=== PATIENT | male | born 1960 | race Caucasian/White ===

== ENCOUNTER 2018-07-20 06:17 | Inpatient (IN) ==
[2018-07-20] MEDS ORDERED: CeFAZolin Syr 3,000MG/30 ML 3,000 MG/30 ML SYRINGE IVPB ONE (06:30)
[2018-07-20] MEDS ORDERED: Ringers Solution, Lactated 1,000 ML IVC SCH (06:30)
[2018-07-20] MEDS ORDERED: Albuterol 2.5 MG/3 ML NEBULIZER IH ONE (06:30)
[2018-07-20] MEDS ORDERED: LIDOCAINE 1% PF 2 ML AMPUL ONE (07:17)
--- NOTE | 2018-07-20 07:28 | History & Physical Report ---
Date of Encounter: 07/20/18 Time of Encounter: 07:28 24 Hour HP Update - Instructions Instructions: If the History and Physical is less than 30 days old and was completed prior to A.M. admission and or procedure and has NOT been updated on calendar day of procedure please complete this update prior to performing procedure. - Update Patient reports changes in Medical Condition: No Changes in examination, assessment, or condition: No Changes in Medication: No Preop tests/diagnostics Reviewed: Yes Surgery Remains Indicated: Yes Consent for Planned Operative Procedure(s) Verified: Yes - Pre-Operative Checklist Preoperative Checklist Indicated: Yes Prophylactic Antibiotic Ordered: Yes Home Medications Include Beta Sergo: No Is VTE Prophylaxis Indicated?: Yes
[2018-07-20] MEDS ORDERED: Lidocaine -MPF 2% 2 ML VIAL ONE ×2 (07:35→07:42)
[2018-07-20] MEDS ORDERED: *HR* Midazolam HCl 2 MG/2 ML VIAL ONE (07:35)
[2018-07-20] MEDS ORDERED: *HR* FentaNYL (PF) 100 MCG/2 ML VIAL ONE ×2 (07:35→09:31)
[2018-07-20] MEDS ORDERED: *HR* Rocuronium Bromide 50 MG/5 ML VIAL ONE ×2 (07:35→10:07)
[2018-07-20] MEDS ORDERED: Lidocaine -MPF 4% 5 ML AMPUL ONE (07:35)
[2018-07-20] MEDS ORDERED: *HR* Succinylcholine 200 MG/10 ML VIAL IVP ONE (07:35)
[2018-07-20] MEDS ORDERED: *HR* Propofol 200 MG/20 ML VIAL IVP ONE (07:36)
[2018-07-20] MEDS ORDERED: *HR* OxyCODONE Immed Rel 5 MG TABLET PO PRN (07:38)
[2018-07-20] MEDS ORDERED: *HR* Promethazine 25 MG/ML VIAL IVP PRN (07:38)
[2018-07-20] MEDS ORDERED: *HR* Labetalol 20 MG/4 ML SYRINGE IVP PRN (07:38)
[2018-07-20] MEDS ORDERED: *HR* HYDROmorphone (PF) 1 MG/ML SYRINGE IVP PRN (07:38)
[2018-07-20] MEDS ORDERED: *HR* Meperidine 25 MG/ML SYRINGE IVP PRN (07:38)
[2018-07-20] MEDS ORDERED: Ondansetron 4 MG/2 ML VIAL IVP ONE (07:38)
--- NOTE | 2018-07-20 07:41 | Anesthesia Evaluation PreOp ---
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: Other (chronic back pain, dizziness) Other Medical History: Hepatic (fatty liver), Renal (left renal mass (most likely cancer)), Diabetes Type II (non insulin dependent), GERD, Other (BMI 51) Anesthesia History: No Prior Anesthetic Complications, Past Anesthesia (cyst removed from left elbow, cyst removed from left side of nose, plantar warts removed from feet, lower extremity surgery for PVD) Alcohol Use: none Drug use: none Medications and Allergies Aclidinium [place] [Tudorza Pressair] 1 puff IH BID 07/20/18 [History] Albuterol Sulfate [Ventolin Hfa] 2 puff IH Q4-6H PRN 07/20/18 [History] Aspirin [Lo-Dose Aspirin EC] 81 mg PO DAILY 07/20/18 [History] Atorvastatin [Lipitor] 40 mg PO HS 07/20/18 [History] Fluticasone Propionate Nasal [Flonase] 1 spr NS DAILY PRN 07/20/18 [History] Ipratropium/Albuterol Neb [Duoneb] 3 ml IH Q6HR 07/20/18 [History] Lansoprazole [Prevacid] 15 mg PO DAILY 07/20/18 [History] Loratadine [Claritin] 10 mg PO DAILY 07/20/18 [History] Metformin HCl [Metformin HCl ER] 500 mg PO BID 07/20/18 [History] rOPINIRole [Requip] 2 mg PO HS 07/20/18 [History] Allergy/AdvReac Type Severity Reaction Status Date / Time No Known Allergies Allergy Verified 07/20/18 07:24 - Meds/Allergy Pre-op Review Medications Reviewed: Yes Allergies Reviewed: Yes Beta Blockers on Current Med List: No Anesthesia Results - Labs Laboratory Tests 07/14/18 07/14/18 07/14/18 12:40 12:40 12:40 WBC 8.1 Hgb 17.0 H Hct 51.8 H Plt Count 209 Potassium 4.4 Creatinine 1.08 Est GFR ( Amer) > 60 Est GFR (Non-Af Amer) > 60 Est Mean Plasma Glucose 151 Hemoglobin A1c 6.9 H - Imaging EKG: report reviewed, image reviewed (: SR; rightward axis; septal T wave changes are nonspecific) Additional studies: TTE: LVEF 55-60% no signficiant valvular disease borderline RV dilation Lexiscan stress test: normal Anesthesia Exam Last Vital Signs Temp 97.8 F 07/20/18 06:44 Pulse 78 07/20/18 06:44 Resp 18 07/20/18 06:44 BP 126/69 07/20/18 06:44 Pulse Ox 91 07/20/18 06:44 Weight: 164 kg NPO (# of Hours): > 8 hrs - HEENT Pupil (Motor): Pupils equal, EOMI Mallampati: III Teeth: Edentulous Oral Opening: Greater than 3 - CRANKSHAFT GRINDER LOC: Oriented - Cardiac Rhythm: Regular Murmur: None - Pulmonary Breath Sounds: bilateral Clear Respiratory Effort: Symmetrical Anesthesia Assess/Plan ASA Score: 4 Anesthetic Plan: General Monitoring Plan: Standard Monitors Recovery Plan: PACU
[2018-07-20] MEDS ORDERED: Ondansetron 4 MG/2 ML VIAL ONE (07:42)
[2018-07-20] MEDS ORDERED: Dexamethasone 4 MG/ML VIAL ONE (07:42)
[2018-07-20] MEDS ORDERED: SUGAMMADEX SODIUM 500 MG/5 ML VIAL IV ONE (07:45)
[2018-07-20] MEDS ORDERED: *HR* PHENYLEPHRINE 1,000 MCG/10 ML SYRINGE IVP ONE (11:58)
[2018-07-20 12:51] LABS: ABG Base Excess -1 mEq/L (-2 to 3); ABG Chloride 104 mEq/L (98-107); ABG Glucose 175 mg/dL (60-95); ABG HCO3 27 mEq/L (21-27); ABG Ionized Calcium 1.18 mmol/L (1.15-1.35); ABG Oxygen Saturation 99 % (95-98); ABG PCO2 59 mmHg (35-45); ABG PH 7.27 pH Units (7.32-7.45); ABG PO2 141 mmHg (85-104); ABG TCO2 29 mEq/L (20-26)
[2018-07-20] MEDS ORDERED: *HR* Morphine 10 MG/ML VIAL ONE (15:31)
--- NOTE | 2018-07-20 16:30 | Operative Note ---
Date of procedure: 07/20/18 Pre-op diagnosis: Left renal mass Post-op diagnosis: same Procedure: Left robotic nephrectomy Implants: Mendes catheter Complications: none Anesthesia: GETA Surgeon: Vinicio Way Was there an embalmer assistant present: Yes Kick Press Operator: Bonita Ventura Estimated blood loss (cc): 2,000 Specimen: left renal mass Condition: stable Disposition: PACU Procedure in Detail: Insert robotic nephrectomy Indications: Danny is a 57-year-old woman who presents with left flank pain. His CT showed a 7cm left renal mass. He elected to undergo a left robotic nephrectomy. He was informed of the risks of the procedure which include but are not limited to bleeding, infection, injury to other structures, need for further procedures, urine leak, bowel injury, need for open conversion, and the risk of anesthesia. He is willing to proceed. Procedure After informed consent was obtained the patient was brought back to the operating room and placed in the supine position. A timeout was performed. Gen. anesthesia was then administered and an endotracheal tube was placed. Appropriate IV access was obtained. A Mendes catheter was placed. He was then placed in the flank position. His left side was up. All pressure points were padded. He was well secured to the table. He was then prepped and draped in the usual sterile fashion. We then marked out our incision along the lateral aspect of the rectus abdominis muscle. 4 robotic ports were placed in line. There was one robotic port which was 12 mm to accommodate the stapler. The most inferior port was a 15 mm port in which I je aleah the robotic port through. Access was obtained using a Veress needle. 2 clicks were heard. It past the water drop test. Insufflation was then initiated. Pressures were low consecutively. The abdomen was insufflated. Once the pressure was up to 15, we inserted the 8 mm robotic port. The camera was placed through the port. No evidence of bowel injury was noted. Remaining robotic ports were inserted. A 12 mm port was placed for the embalmer assistant superior to the umbilicus using the air seal. The robot was docked. The bowel was reflected off the kidney along the white line of Toldt. The kidney was identified. Dissection proceeded inferiorly. Once the bowel was reflected medially I identified the gonadal vein. This was pressed down and the ureter was identified behind it. The ureter was elevated with the kidney and the kidney was lifted towards the anterior abdominal wall. Dissection proceeded in a superior fashion to the hilum. There was an inferior renal artery and vein noted. These were controlled using hemo-lock clips. 2 were applied to the patient's side and one was applied to the specimen. The vessels were cut between. Dissection proceeded superiorly to the hilum. The renal vein was identified. The renal artery was identified superior to it. Hemo-lock clips were applied 3 to the artery. 2 were left with the patient's side and one was left in the specimen side. The artery was divided and hemostasis was well controlled. The robotic stapler was introduced. The renal vein was stapled across. The stapler did not go across the entire renal vein. There was then hemorrhage from the renal vein. I applied hemo-lock clips to the renal vein and this slowed down the bleeding. Unfortunately, the size of the kidney made visualization of the hilum to the lateral aspect difficult. I placed a Surgicel in the area of the hilum. The bleeding seemed to slow down. I then turned my attention to mobilize the kidney. Began dissecting superior to the kidney. The fat was dissected with a left cautery. Attention was then turned to the inferior aspect. The ureter was clipped with the hemo-lock clips. It was cut in between clips. The kidney was reflected anteriorly. I continued the dissection up the posterior aspect. Another lower pole vascular branch was encountered. This was small. I used bipolar cautery which controlled the bleeding and the vessels were taken. Hemostasis was good. A large parasitic vein was seen coming into the anterior aspect of the kidney. A stapler load was placed across that. Eventually I was able to mobilize the kidney further. I then turned my attention back to the hilum. I had adequate posterior dissection at that point. The remaining renal vein was identified. A second stapler load was used to control the remaining renal vein. Hemostasis was good. We then turned our dissection superior and laterally and freed the kidney from the splenorenal attachments. The kidney was dissected free superiorly. The kidney was then completely freed. Hemostasis was good. The robot was undocked. I placed a 15 mm extraction bag into the lower port. I was not able to get the kidney in there. A lot of time was spent trying to get the kidney in a bag. Eventually I extended the port site and placed a GelPort. The bag was placed with a 12 mm port after removal of it. I was able to use my hand to get the kidney into the bag. This was then brought to the wound created for the hand port. The kidney was brought out. The Endo Close was then placed to close the air seal port and the 12 mm port. I then visualized the hilum and felt that hemostasis was adequate. No drain was left in place. The extraction site was then closed. The peritoneum was closed in a running fashion using 0 Vicryl suture. The fascia was closed using a 1 Vicryl suture in an interrupted [id number] fashion. The wounds were irrigated. 3-0 Vicryl was used to close the Yandy's fascia on the extraction site. Local anesthetic was infiltrated in the skin. The wounds were closed in a subcuticular fashion using 4-0 Monocryl suture. Local anesthetic was infiltrated in the wounds. Dermabond was applied to the wounds. The patient was then awakened from general anesthesia and brought to recovery room in good condition. All sponge, needle, and instrument counts were correct.
[2018-07-20 17:00] LABS: Hematocrit 38.4 % (37.5-50.1)
[2018-07-20 17:01] LABS: Hemoglobin 12.5 g/dL (12.9-16.9)
--- NOTE | 2018-07-20 17:41 | Anesthesia Evaluation Post Op ---
Date of Encounter: 07/20/18 Time of Encounter: 17:37 - Vital Signs Vital Signs: Last Vital Signs Temp 100.3 F H 07/20/18 17:30 Pulse 98 07/20/18 17:30 Resp 16 07/20/18 17:30 BP 123/69 07/20/18 17:20 Pulse Ox 93 07/20/18 17:30 - Lungs Lungs: Clear Ascult./Percussion - Airway Airway: Non-obstructed - Cardiovascular Regular Rate - Mental Status Mental Status: Alert & Oriented, Answers Appropriately - Pain Pain Scale: 3 - Nausea Vomiting Nausea Vomiting: Not Present - Hydration Hydration: NPO, Mendes catheter - Discharge PostOp Status: Transfer Patient to floor
[2018-07-20] MEDS ORDERED: D5% in Water 1,000 ML IVC PRN (17:55)
[2018-07-20] MEDS ORDERED: *HR* Dextrose 50 % in Water (Syg) 50 ML SYRINGE IVP PRN (17:55)
[2018-07-20] MEDS ORDERED: Naloxone 0.4 MG/ML INJ IVP PRN (17:55)
[2018-07-20] MEDS ORDERED: OXYCODONE Oral CONC 10 MG/0.5 ML ORAL.SYG SL PRN (17:55)
[2018-07-20] MEDS ORDERED: Dextrose Gel 15 GM/37.5 ML TUBE PO PRN ×2 (17:55)
[2018-07-20] MEDS ORDERED: Fluticasone Propionate Nasal 50 MCG/SPRAY BOTTLE NS PRN (17:55)
[2018-07-20] MEDS ORDERED: Ipratropium/Albuterol Neb 3 ML IH SCH (18:00)
[2018-07-20] MEDS: 0.9 % Sodium Chloride 1,000 ML IVC SCH (18:34)
[2018-07-20 21:04] LABS: Hematocrit 36.1 % (37.5-50.1); Hemoglobin 11.8 g/dL (12.9-16.9)
[2018-07-20] MEDS: rOPINIRole 1 MG TABLET PO SCH (21:33)
[2018-07-20] MEDS: *HR* OxyCODONE Immed Rel 5 MG TABLET PO PRN (21:33)
[2018-07-20] MEDS: Ipratropium/Albuterol Neb 3 ML IH SCH (22:28)
[2018-07-21] MEDS: CeFAZolin Syr 3,000MG/30 ML 3,000 MG/30 ML SYRINGE IVPB SCH ×2 (00:42→08:49)
[2018-07-21] MEDS: 0.9 % Sodium Chloride 1,000 ML IVC SCH ×3 (00:44→18:58)
[2018-07-21] MEDS: Ipratropium/Albuterol Neb 3 ML IH SCH ×4 (03:59→21:37)
[2018-07-21 05:44] LABS: Basophils % 0.1 %; Hematocrit 35.3 % (37.5-50.1); Immature Granulocytes % 0.2 % (0-4); Lymphocytes # 1.6 K/mcL (0.6-4.6); Lymphocytes % 12.4 %; Mean Corpuscular HGB Conc 31.2 g/dL (31.6-35.5); Mean Corpuscular Hemoglobin 29.4 pg (28.0-33.3); Mean Corpuscular Volume 94.4 fL (83.0-100.0); Mean Platelet Volume 10.6 fL (9.4-12.4); Monocytes % 7.9 %; Neutrophils # 10.2 K/mcL (1.6-8.9); Platelet Count 172 K/mcL (140-400); Red Blood Count 3.74 M/mcL (4.19-5.50); Red Cell Distribution Width 13.9 % (11.5-14.5); Segmented Neutrophils % 79.4 %
[2018-07-21 05:58] LABS: INR 1.1; Prothrombin Time 12.3 Seconds (9.4-12.1)
[2018-07-21] MEDS: Loratadine 10 MG TABLET PO SCH (08:48)
--- NOTE | 2018-07-21 09:26 | Urology Progress Note ---
Addendum entered and electronically signed by Vinicio Way MD 07/21/18 11:47: The patient was seen and examined with the physician's night assistant. I agree with the assessment and plan. We will monitor his H&H. It did drift down overnight. Await afternoon labs. I will repeat morning labs tomorrow. I will decrease IV fluids as her may be a dilutional component to this. We will request PT/OT for ambulation and assistance with his upper extremities. Continue clear liquids and await return of bowel function. I will continue his indwelling catheter to monitor his urine output. Original Note: Date of Encounter: 07/21/18 Time of Encounter: 08:10 - Assessment and Plan (1) Renal mass, left Current Visit: Yes Status: Acute Assessment and plan: Patient is a 57-year-old male who presents with a history of a large left renal mass. Patient is one day postoperative from a left robotic-assisted nephrectomy. Patient is feeling well postoperatively with no new concerns. We will continue with a clear liquid diet for the remainder of the day and continue Mendes catheter to strictly monitor I's and O's. Patient had adequate urine output overnight, so fluid rate will be decreased to 100 cc per hour. I encouraged ambulation up in the chair and consulted PT and OT. We will repeat an H&H at 1400 and then repeat both CBC and BMP tomorrow morning. Progress Note Narrative: POD#1. Patient seen and examined sitting upright in bed in no apparent distress. Patient states pain is well-controlled. Patient is tolerating clear liquids without nausea or vomiting. Patient reports some abdominal fullness and pressure, likely related to surgical insufflation. Indwelling catheter is draining clear urine into bedside bag. Objective Initial Vital Signs Temp Pulse Resp BP Pulse Ox 97.8 F 78 18 126/69 91 07/20/18 06:44 07/20/18 06:44 07/20/18 06:44 07/20/18 06:44 07/20/18 06:44 - General physical appearance Present: well developed, no distress, no pain - Respiratory Present: normal expansion, normal respiratory effort - Abdomen Present: soft, wound (Primary incisions are clean, dry, intact.) - Genitourinary Urine Appearance: Present: Clear - Integumentary Present: no rash, no abnormal pigmentation - Musculoskeletal Present: normal posture - Psychiatric Present: oriented to time, oriented to person, oriented to place, speech is normal, memory intact - Labs 07/21/18 05:28 Consult Discharge Plan - Plan Referrals: NONE,PCP [Primary Care Provider] -
[2018-07-21] MEDS: Acetaminophen 325 MG TABLET PO PRN ×2 (11:17→20:07)
[2018-07-21 14:25] LABS: Hematocrit 31.2 % (37.5-50.1); Hemoglobin 10.1 g/dL (12.9-16.9)
[2018-07-21] MEDS: *HR* OxyCODONE Immed Rel 5 MG TABLET PO PRN (18:13)
[2018-07-21] MEDS: rOPINIRole 1 MG TABLET PO SCH (20:07)
[2018-07-22] MEDS: *HR* OxyCODONE Immed Rel 5 MG TABLET PO PRN ×4 (01:40→20:04)
[2018-07-22] MEDS: Ipratropium/Albuterol Neb 3 ML IH SCH ×4 (03:51→22:02)
[2018-07-22] MEDS: 0.9 % Sodium Chloride 1,000 ML IVC SCH ×2 (05:18→15:37)
[2018-07-22 06:21] LABS: Basophils % 0.2 %; Eosinophils % 0.1 %; Hematocrit 27.2 % (37.5-50.1); Immature Granulocytes % 0.9 % (0-4); Lymphocytes # 1.6 K/mcL (0.6-4.6); Lymphocytes % 14.2 %; Mean Corpuscular HGB Conc 33.1 g/dL (31.6-35.5); Mean Corpuscular Hemoglobin 30.6 pg (28.0-33.3); Mean Corpuscular Volume 92.5 fL (83.0-100.0); Mean Platelet Volume 10.4 fL (9.4-12.4); Monocytes % 8.9 %; Neutrophils # 8.5 K/mcL (1.6-8.9); Platelet Count 128 K/mcL (140-400); Red Blood Count 2.94 M/mcL (4.19-5.50); Red Cell Distribution Width 13.8 % (11.5-14.5); Segmented Neutrophils % 75.7 %
[2018-07-22 06:44] LABS: Calcium 7.2 mg/dL (8.6-10.3); Potassium 4.4 mEq/L (3.5-5.1)
[2018-07-22] MEDS: Loratadine 10 MG TABLET PO SCH (08:13)
--- NOTE | 2018-07-22 08:59 | Urology Progress Note ---
<Bonita Ventura N - Last Filed: 07/22/18 09:00> Date of Encounter: 07/22/18 Time of Encounter: 08:53 - Assessment and Plan (1) Renal mass, left Current Visit: Yes Status: Acute Assessment and plan: Patient is a 57-year-old male who is 2 days status post left robotic-assisted nephrectomy. Reviewed labs and discussed H&H with Dr. Way. We will repeat H&H at 1400 [address] with a [address] scan of the abdomen and pelvis without contrast to evaluate for any active bleeding. We will continue to hold Lovenox due to the concern for bleeding. Vital signs are stable with slight fever to 100.0. WBC trending down. Clinically, the patient appears hemodynamically stable and in no apparent distress. We will reevaluate Mr. Lr this afternoon. Progress Note Narrative: POD #2. Patient seen and examined sitting upright in bed eating breakfast in no apparent distress. Patient is tolerating clear liquid diet without difficulty. Patient denies nausea or vomiting. Patient is requesting diet advancement. Mendes catheter is indwelling and draining clear urine into bedside bag. Patient states pain is well-controlled. Objective Initial Vital Signs Temp Pulse Resp BP Pulse Ox 97.8 F 78 18 126/69 91 07/20/18 06:44 07/20/18 06:44 07/20/18 06:44 07/20/18 06:44 07/20/18 06:44 - General physical appearance Present: well developed, no distress, no pain - Respiratory Present: normal expansion, normal respiratory effort - Abdomen Present: soft, non tender, wound (Primary incisions clean, dry, intact. Ecchymosis surrounding left lower incision.) - Genitourinary Urine Appearance: Present: Clear - Integumentary Present: no rash, no abnormal pigmentation - Musculoskeletal Present: normal posture - Psychiatric Present: oriented to time, oriented to person, oriented to place, speech is normal, memory intact - Labs 07/22/18 05:55 07/22/18 05:55 Diabetes panel 07/22/18 Range/Units 05:55 Sodium 135 L (136-145) mEq/L Potassium 4.4 (3.5-5.1) mEq/L Chloride 104 (98-107) mEq/L Carbon Dioxide 27 (23-29) mEq/L BUN 19 (6-20) mg/dL Creatinine 1.54 H (0.70-1.30) mg/dL Glucose 111 H (70-105) mg/dL Calcium 7.2 L (8.6-10.3) mg/dL Calcium panel 07/22/18 Range/Units 05:55 Calcium 7.2 L (8.6-10.3) mg/dL Pituitary panel 07/22/18 Range/Units 05:55 Sodium 135 L (136-145) mEq/L Potassium 4.4 (3.5-5.1) mEq/L Chloride 104 (98-107) mEq/L Carbon Dioxide 27 (23-29) mEq/L BUN 19 (6-20) mg/dL Creatinine 1.54 H (0.70-1.30) mg/dL Glucose 111 H (70-105) mg/dL Calcium 7.2 L (8.6-10.3) mg/dL Adrenal panel 07/22/18 Range/Units 05:55 Sodium 135 L (136-145) mEq/L Potassium 4.4 (3.5-5.1) mEq/L Chloride 104 (98-107) mEq/L Carbon Dioxide 27 (23-29) mEq/L BUN 19 (6-20) mg/dL Creatinine 1.54 H (0.70-1.30) mg/dL Glucose 111 H (70-105) mg/dL Calcium 7.2 L (8.6-10.3) mg/dL Consult Discharge Plan - Plan Referrals: NONE,PCP [Primary Care Provider] - <Vinicio Way - Last Filed: 07/22/18 13:02> Date of Encounter: 07/22/18 - Assessment and Plan (1) Anemia following surgery Current Visit: Yes Status: Acute Assessment and plan: POD #2 s/p left nephrectomy. H&H has dropped. Will check CT abdomen and pelvis. Continue with serial H&H. Will consider transfusion if hemoglobin drops below 8 or he becomes symptomatic. Ambulate 3x/day Continue clears Continue inpatient stay. Will hold off on subcutaneous heparin given concern for postoperative hematoma. Objective Initial Vital Signs Temp Pulse Resp BP Pulse Ox 97.8 F 78 18 126/69 91 07/20/18 06:44 07/20/18 06:44 07/20/18 06:44 07/20/18 06:44 07/20/18 06:44 - Labs 07/22/18 05:55 07/22/18 05:55 Diabetes panel 07/22/18 Range/Units 05:55 Sodium 135 L (136-145) mEq/L Potassium 4.4 (3.5-5.1) mEq/L Chloride 104 (98-107) mEq/L Carbon Dioxide 27 (23-29) mEq/L BUN 19 (6-20) mg/dL Creatinine 1.54 H (0.70-1.30) mg/dL Glucose 111 H (70-105) mg/dL Calcium 7.2 L (8.6-10.3) mg/dL Calcium panel 07/22/18 Range/Units 05:55 Calcium 7.2 L (8.6-10.3) mg/dL Pituitary panel 07/22/18 Range/Units 05:55 Sodium 135 L (136-145) mEq/L Potassium 4.4 (3.5-5.1) mEq/L Chloride 104 (98-107) mEq/L Carbon Dioxide 27 (23-29) mEq/L BUN 19 (6-20) mg/dL Creatinine 1.54 H (0.70-1.30) mg/dL Glucose 111 H (70-105) mg/dL Calcium 7.2 L (8.6-10.3) mg/dL Adrenal panel 07/22/18 Range/Units 05:55 Sodium 135 L (136-145) mEq/L Potassium 4.4 (3.5-5.1) mEq/L Chloride 104 (98-107) mEq/L Carbon Dioxide 27 (23-29) mEq/L BUN 19 (6-20) mg/dL Creatinine 1.54 H (0.70-1.30) mg/dL Glucose 111 H (70-105) mg/dL Calcium 7.2 L (8.6-10.3) mg/dL
[2018-07-22 14:33] LABS: Hematocrit 29.7 % (37.5-50.1); Hemoglobin 9.6 g/dL (12.9-16.9)
[2018-07-22] MEDS: rOPINIRole 1 MG TABLET PO SCH (20:50)
[2018-07-23] MEDS: Ipratropium/Albuterol Neb 3 ML IH SCH ×4 (04:04→22:07)
[2018-07-23 05:01] LABS: Basophils % 0.2 %; Eosinophils # 0.1 K/mcL (0.0-0.6); Eosinophils % 0.5 %; Hematocrit 27.2 % (37.5-50.1); Hemoglobin 8.7 g/dL (12.9-16.9); Immature Granulocytes % 0.8 % (0-4); Lymphocytes # 1.2 K/mcL (0.6-4.6); Lymphocytes % 11.4 %; Mean Corpuscular Hemoglobin 29.8 pg (28.0-33.3); Mean Corpuscular Volume 93.2 fL (83.0-100.0); Mean Platelet Volume 10.2 fL (9.4-12.4); Monocytes # 0.9 K/mcL (0.0-1.3); Monocytes % 8.4 %; Neutrophils # 8.1 K/mcL (1.6-8.9); Platelet Count 142 K/mcL (140-400); Red Blood Count 2.92 M/mcL (4.19-5.50); Red Cell Distribution Width 13.3 % (11.5-14.5); Segmented Neutrophils % 78.7 %
[2018-07-23 05:21] LABS: BUN/Creatinine Ratio 11 (6-26); Blood Urea Nitrogen 15 mg/dL (6-20); Calcium 7.7 mg/dL (8.6-10.3); Carbon Dioxide 28 mEq/L (23-29); Chloride 103 mEq/L (98-107); Glucose 115 mg/dL (70-105); Magnesium 1.9 mg/dL (1.6-2.6); Osmolality,Calculated 282 (280-300); Potassium 4.5 mEq/L (3.5-5.1); Sodium 135 mEq/L (136-145); eGFR For Non-African Americans 52 (> 60)
[2018-07-23] MEDS: *HR* OxyCODONE Immed Rel 5 MG TABLET PO PRN ×2 (06:22→17:07)
--- NOTE | 2018-07-23 07:36 | Urology Progress Note ---
Date of Encounter: 07/23/18 Time of Encounter: 07:33 - Assessment and Plan (1) Renal mass, left Current Visit: Yes Status: Acute Assessment and plan: Postoperative day #3 status post left robotic nephrectomy. 1. Ambulate 3 times per day. 2. Regular diet. 3. Will resume his diabetic medication. 4. Will arrange for rehabilitation stay upon discharge. 5. Will hold on subcutaneous heparin given concern for postoperative bleeding. Continue with ambulation and sequential compressive devices. 6. IV fluids have been hep-locked. Mendes catheter was removed. (2) Anemia following surgery Current Visit: Yes Status: Acute Assessment and plan: We will continue to monitor. No transfusion necessary at this time. He is hemodynamically stable. Progress Note Narrative: 57-year-old man postoperative day #3 status post left robotic nephrectomy. He had a CT scan yesterday which showed a postoperative hematoma. Blood counts are stable yesterday afternoon. He says he feels well. He is passing gas. He is tolerating general diet. His Mendes catheter was removed today. Objective Initial Vital Signs Temp Pulse Resp BP Pulse Ox 97.8 F 78 18 126/69 91 07/20/18 06:44 07/20/18 06:44 07/20/18 06:44 07/20/18 06:44 07/20/18 06:44 - General physical appearance Present: well developed, well nourished, no distress - Respiratory Present: normal respiratory effort - Abdomen Present: soft (Appropriately tender, mildly distended, incisions are clean, dry, and intact. Mild ecchymosis to the extraction wound.) - Labs 07/23/18 04:45 07/23/18 04:45 Diabetes panel 07/23/18 Range/Units 04:45 Sodium 135 L (136-145) mEq/L Potassium 4.5 (3.5-5.1) mEq/L Chloride 103 (98-107) mEq/L Carbon Dioxide 28 (23-29) mEq/L BUN 15 (6-20) mg/dL Creatinine 1.41 H (0.70-1.30) mg/dL Glucose 115 H (70-105) mg/dL Calcium 7.7 L (8.6-10.3) mg/dL Calcium panel 07/23/18 Range/Units 04:45 Calcium 7.7 L (8.6-10.3) mg/dL Phosphorus 2.0 L (2.7-4.5) mg/dL Pituitary panel 07/23/18 Range/Units 04:45 Sodium 135 L (136-145) mEq/L Potassium 4.5 (3.5-5.1) mEq/L Chloride 103 (98-107) mEq/L Carbon Dioxide 28 (23-29) mEq/L BUN 15 (6-20) mg/dL Creatinine 1.41 H (0.70-1.30) mg/dL Glucose 115 H (70-105) mg/dL Calcium 7.7 L (8.6-10.3) mg/dL Adrenal panel 07/23/18 Range/Units 04:45 Sodium 135 L (136-145) mEq/L Potassium 4.5 (3.5-5.1) mEq/L Chloride 103 (98-107) mEq/L Carbon Dioxide 28 (23-29) mEq/L BUN 15 (6-20) mg/dL Creatinine 1.41 H (0.70-1.30) mg/dL Glucose 115 H (70-105) mg/dL Calcium 7.7 L (8.6-10.3) mg/dL Consult Discharge Plan - Plan Referrals: NONE,PCP [Primary Care Provider] -
--- NOTE | 2018-07-23 07:37 | Physician Discharge Referral ---
Addendum entered and electronically signed by FRED Barrera 07/31/18 08:38: Additional orders: 1. Please change dressing and 1/4in. plain wound packing twice daily. 2. Please continue all home and discharge medications as prescribed. 3. Continue Oxygen by 2L nasal cannula and CPAP during sleep. 4. May resume Metformin as prescribed and use sliding scale insulin. Original Note: [facility] Referral Info Transfer To: Rehab facility Provider in Charge after Transfer: PCP Institutional Level of Care: Skilled - Diagnosis (1) Renal mass, left Priority: Primary Status: Acute (2) Anemia following surgery Priority: Secondary Status: Acute Expected Duration of Placement: 1 wek Prognosis: Good Aware of Diagnosis: Patient, Family Aware of Prognosis: Patient, Family - Transfer Medications Home Medications: Aclidinium [place] [Tudorza Pressair] 1 puff IH BID 07/20/18 [History] Albuterol Sulfate [Ventolin Hfa] 2 puff IH Q4-6H PRN 07/20/18 [History] Aspirin [Lo-Dose Aspirin EC] 81 mg PO DAILY 07/20/18 [History] Atorvastatin [Lipitor] 40 mg PO HS 07/20/18 [History] Fluticasone Propionate Nasal [Flonase] 1 spr NS DAILY PRN 07/20/18 [History] Ipratropium/Albuterol Neb [Duoneb] 3 ml IH Q6HR 07/20/18 [History] Lansoprazole [Prevacid] 15 mg PO DAILY 07/20/18 [History] Loratadine [Claritin] 10 mg PO DAILY 07/20/18 [History] Metformin HCl [Metformin HCl ER] 500 mg PO BID 07/20/18 [History] rOPINIRole [Requip] 2 mg PO HS 07/20/18 [History] Allergies/Adverse Reactions: Allergy/AdvReac Type Severity Reaction Status Date / Time No Known Allergies Allergy Verified 07/20/18 07:24 - Respiratory Orders Smoking Cessation: Smoking cessation has been advised. For more information, call the [place] Tobacco Quit Line at 3-088-FCAT-NOW. - Ancillary Orders May use pressure relief devices daily prn, May go on ANDRESSA w/family/respon alliance party w/meds at nurse discretion PRN, May consult with Dentist, Telephone Service Representative, Display Specialist PRN - Advance Directives Code Status: Full Code - Mobility Orders Ambulate - Rehabiliation Orders Rehab Potential: Good Rehab Orders: Evaluation for Physical Therapy - Diet Orders Regular CERTIFICATION: I certify that the transfer of the above named patient to an Extended Care Facility is necessary for the continuing treatment of the diagnosis listed. The above information is true and accurate reflection of patient's current condition. Confidential - Redisclosure prohibited without a patient's written consent.
[2018-07-23] MEDS: Loratadine 10 MG TABLET PO SCH (09:37)
[2018-07-23] MEDS: *HR* Metformin 500 MG TABLET PO SCH ×2 (09:42→20:25)
[2018-07-23] MEDS: rOPINIRole 1 MG TABLET PO SCH (20:25)
[2018-07-23] MEDS: Acetaminophen 325 MG TABLET PO PRN (23:15)
[2018-07-24 03:30] LABS: Hematocrit 26.3 % (37.5-50.1); Hemoglobin 8.5 g/dL (12.9-16.9)
[2018-07-24] MEDS: *HR* OxyCODONE Immed Rel 5 MG TABLET PO PRN ×4 (03:51→21:45)
[2018-07-24] MEDS: Ipratropium/Albuterol Neb 3 ML IH SCH ×4 (04:08→22:17)
--- NOTE | 2018-07-24 07:19 | Discharge Summary ---
Orders not resulted at time of discharge: Pending orders 07/20/18 11:53 Red Blood Cells [BBK] Stat 07/20/18 16:34 Surgical Pathology [PTH] Routine Date of Encounter: 07/24/18 Time of Encounter: 07:19 - Discharge Diagnosis (1) Renal mass, left Status: Acute (2) Anemia following surgery Priority: Secondary Status: Acute - Hospital Course Hospital course: Mr. Lr is a 57 year old male who has a history of a left renal mass. On 07/20/2018 underwent a left robotic nephrectomy. Surgery was noted for a higher blood loss secondary to incomplete renal vein control. He did well postoperatively. His hemoglobin did slowly drop, but on postoperative day #[address] scan was obtained. This showed a hematoma in the nephrectomy bed. His h emoglobin did stabilize. He began to have return of bowel function. He tolerated general diet. He was ambulating with assistance. Physical therapy recommended short-term rehabilitation stay. He was discharged home on postop day #4. - Time Spent with Patient Total time spent providing and/or coordinating discharge services: Labs on day of discharge: Labs from last 24 hours 07/24/18 07/23/18 07/23/18 03:03 17:00 10:47 Hgb 8.5 L Hct 26.3 L POC Glucose 121 H 119 H 07/23/18 07:03 Hgb Hct POC Glucose 112 H - Impressions ITS Impressions Abdomen/Pelvis CT 07/22/18 08:05 IMPRESSION: Patient is status post left nephrectomy. Small to moderate amount of fluid and hemorrhagic material within the left retroperitoneum likely relating to the recent surgical intervention without organized appearance for hematoma. There also a small amount of intraperitoneal free hemorrhagic material. Small amount of intraperitoneal and left retroperitoneal free air likely relating to the recent surgical intervention as well. Postsurgical change with fat stranding and foci of gas in the subcutaneous fat and anterior abdominal wall likely relating to the recent surgical intervention as well with extension of gas into the scrotal region. No focal fluid collection noted. Critical results were called by Dr. Arvin Jolley MD to Usha Rooney, nurse caring for the patient, on 07/22/2018 at 10:24. D/ / 07/22/2018 10:28:57 Arvin Jolley MD / prudencio Interpreting Provider: Arvin Jolley MD - Discharge Medications Prescriptions: Docusate [Colace] 100 mg PO BID #60 capsule Oxycodone HCl/Acetaminophen [Percocet 5-325 mg Tablet] 1 each PO Q4H PRN 5 Days #20 tablet PRN Reason: Pain Home Medications: Aclidinium [place] [Tudorza Pressair] 1 puff IH BID 07/20/18 [History] Albuterol Sulfate [Ventolin Hfa] 2 puff IH Q4-6H PRN 07/20/18 [History] Aspirin [Lo-Dose Aspirin EC] 81 mg PO DAILY 07/20/18 [History] Atorvastatin [Lipitor] 40 mg PO HS 07/20/18 [History] Fluticasone Propionate Nasal [Flonase] 1 spr NS DAILY PRN 07/20/18 [History] Ipratropium/Albuterol Neb [Duoneb] 3 ml IH Q6HR 07/20/18 [History] Lansoprazole [Prevacid] 15 mg PO DAILY 07/20/18 [History] Loratadine [Claritin] 10 mg PO DAILY 07/20/18 [History] Metformin HCl [Metformin HCl ER] 500 mg PO BID 07/20/18 [History] rOPINIRole [Requip] 2 mg PO HS 07/20/18 [History] Docusate [Colace] 100 mg PO BID #60 capsule 07/24/18 [Rx] Oxycodone HCl/Acetaminophen [Percocet 5-325 mg Tablet] 1 each PO Q4H PRN 5 Days #20 tablet 07/24/18 [Rx] Allergies/Adverse Reactions: Allergy/AdvReac Type Severity Reaction Status Date / Time No Known Allergies Allergy Verified 07/20/18 07:24 Date of admission: 07/20/18 17:39 Primary care physician: PCP NONE Consults: 07/21/18 09:15 Consult to Occupational Therapy [CONS] Routine Comment: Evaluate, develop and implement POC Reason for Consult: postoperative ambulation assistance Does patient have active BEDREST order?: No Is patient medically & hemodynamically stable?: Yes Patient assessed for mobility or mobilized this visit?: No Consult to Physical Therapy [CONS] Routine Comment: Evaluate, develop and implement POC Reason for Consult: encourage postoperative ambulation Does patient have active BEDREST order?: No Is patient medically & hemodynamically stable?: Yes Patient assessed for mobility or mobilized this visit?: No 07/23/18 07:37 Consult to Skimmer [CONS] Routine Reason for SW Consult: discharge planning to rehab Discharging clinician: Vinicio Way Anticipated date of discharge: 07/24/18 Exam Initial Vital Signs Temp Pulse Resp BP Pulse Ox 97.8 F 78 18 126/69 91 07/20/18 06:44 07/20/18 06:44 07/20/18 06:44 07/20/18 06:44 07/20/18 06:44 - General physical appearance Present: well developed, well nourished, no distress - Eyes Absent: icteric - ENT Present: normal nares - Neck Present: trachea midline - Respiratory Present: normal respiratory effort - Cardiovascular Cardiovascular exam IM: RRR - Abdomen Abdomen: Present: soft (Incisions are clean, dry, and intact. No evidence of erythema.) - Genitourinary normal penis with no external lesions - Integumentary Present: no rash - Neurologic Present: normal coordination - Musculoskeletal Present: normal gait - Patient Status Disposition: Transfer Inpatient Rehab Fac Condition: Good Functional capacity at discharge: uses cane/walker Overall status at discharge: patient is progressing back to baseline - Discharge Instructions Follow Up With: NONE,PCP [Primary Care Provider] - Vinicio Way MD [Partnered Physician] - (2 weeks for wound check.) Additional Instructions: 1. No heavy lifting greater than 20 pounds x 4 weeks. 2. No tub baths x 2 weeks. 3. May shower. 4. He should follow up in 2 weeks for postoperative check. 5. He should return for any fevers, chills, nausea, vomiting, or significant swelling/ecchymosis. 6. He should hold aspirin and any other blood thinners for 1 week. - Diet and Activity Activity: increase activity as tolerated Diet: diabetic diet
[2018-07-24] MEDS: *HR* Metformin 500 MG TABLET PO SCH ×2 (09:53→21:46)
[2018-07-24] MEDS: Loratadine 10 MG TABLET PO SCH (09:53)
[2018-07-24] MEDS: Acetaminophen 325 MG TABLET PO PRN (12:43)
--- NOTE | 2018-07-24 16:18 | Urology Progress Note ---
Date of Encounter: 07/24/18 Time of Encounter: 06:45 - Assessment and Plan (1) Renal mass, left Current Visit: Yes Status: Acute Assessment and plan: POD #4 s/p left robotic nephrectomy. 1. D/c to rehab once available. 2. general diet. 3. Ambulate 3x/day. (2) Anemia following surgery Current Visit: Yes Status: Acute Progress Note Narrative: Doing well. Tolerating diet. H&H is stable. Ambulating well. Objective Initial Vital Signs Temp Pulse Resp BP Pulse Ox 97.8 F 78 18 126/69 91 07/20/18 06:44 07/20/18 06:44 07/20/18 06:44 07/20/18 06:44 07/20/18 06:44 - General physical appearance Present: well developed, well nourished, no distress - Respiratory Present: normal respiratory effort - Abdomen Present: soft (appropriately tender, nd, incisions are c,d,i.) - Labs 07/24/18 03:03 07/23/18 04:45 Consult Discharge Plan - Plan Additional Instructions: 1. No heavy lifting greater than 20 pounds x 4 weeks. 2. No tub baths x 2 weeks. 3. May shower. 4. He should follow up in 2 weeks for postoperative check. 5. He should return for any fevers, chills, nausea, vomiting, or significant swelling/ecchymosis. 6. He should hold aspirin and any other blood thinners for 1 week. Referrals: Vinicio Way MD [Partnered Physician] - (2 weeks for wound check.) NONE,PCP [Primary Care Provider] - Prescriptions: Docusate [Colace] 100 mg PO BID #60 capsule Oxycodone HCl/Acetaminophen [Percocet 5-325 mg Tablet] 1 each PO Q4H PRN 5 Days #20 tablet PRN Reason: Pain
[2018-07-24] MEDS: rOPINIRole 1 MG TABLET PO SCH (21:46)
[2018-07-25] MEDS: *HR* OxyCODONE Immed Rel 5 MG TABLET PO PRN ×4 (03:13→19:55)
[2018-07-25] MEDS: Ipratropium/Albuterol Neb 3 ML IH SCH ×4 (04:19→22:45)
--- NOTE | 2018-07-25 08:37 | Urology Progress Note ---
Date of Encounter: 07/25/18 Time of Encounter: 08:34 - Assessment and Plan (1) Renal mass, left Current Visit: Yes Status: Acute Assessment and plan: 57-year-old man status post left robotic nephrectomy. We are awaiting on rehab ilitation placement. Continue general diet. Continue ambulation 3 times per day. I will continue to hold on subcutaneous prophylaxis with heparin given the bleeding issues after surgery. I will order an oxygen tank to bedside if possible. (2) Anemia following surgery Current Visit: Yes Status: Acute Progress Note Narrative: Postop day #5 status post left robotic nephrectomy. We are currently waiting on rehabilitation placement. He says he is doing well. He has some scrotal edema and bilateral lower extremity edema. He is tolerating diet. Pain is adequately controlled. Objective Initial Vital Signs Temp Pulse Resp BP Pulse Ox 97.8 F 78 18 126/69 91 07/20/18 06:44 07/20/18 06:44 07/20/18 06:44 07/20/18 06:44 07/20/18 06:44 - General physical appearance Present: well developed, well nourished, no distress - Respiratory Present: normal respiratory effort - Abdomen Present: soft (Appropriately tender. Incisions are clean, dry, and intact.) - Genitourinary Present: other (Scrotum is edematous. I elevated it with a towel.) - Musculoskeletal Present: other (He has lower extremity edema bilaterally.) - Labs 07/24/18 03:03 07/23/18 04:45 Consult Discharge Plan - Plan Additional Instructions: 1. No heavy lifting greater than 20 pounds x 4 weeks. 2. No tub baths x 2 weeks. 3. May shower. 4. He should follow up in 2 weeks for postoperative check. 5. He should return for any fevers, chills, nausea, vomiting, or significant swelling/ecchymosis. 6. He should hold aspirin and any other blood thinners for 1 week. Referrals: Vinicio Way MD [Partnered Physician] - (2 weeks for wound check.) NONE,PCP [Primary Care Provider] - Prescriptions: Docusate [Colace] 100 mg PO BID #60 capsule Oxycodone HCl/Acetaminophen [Percocet 5-325 mg Tablet] 1 each PO Q4H PRN 5 Days #20 tablet PRN Reason: Pain
[2018-07-25] MEDS: *HR* Metformin 500 MG TABLET PO SCH ×2 (08:38→20:14)
[2018-07-25] MEDS: Loratadine 10 MG TABLET PO SCH (08:38)
[2018-07-25] MEDS: Acetaminophen 325 MG TABLET PO PRN (11:56)
[2018-07-25] MEDS: rOPINIRole 1 MG TABLET PO SCH (20:14)
[2018-07-26] MEDS: *HR* OxyCODONE Immed Rel 5 MG TABLET PO PRN ×4 (00:43→19:47)
[2018-07-26] MEDS: Ipratropium/Albuterol Neb 3 ML IH SCH ×2 (03:37→10:53)
[2018-07-26] MEDS ORDERED: *HR* Metoprolol 5 MG/5 ML VIAL IVP ONE ×3 (05:35→09:28)
[2018-07-26 05:43] LABS: Basophils % 0.4 %; Eosinophils # 0.3 K/mcL (0.0-0.6); Eosinophils % 3.3 %; Hematocrit 29.4 % (37.5-50.1); Hemoglobin 9.5 g/dL (12.9-16.9); Lymphocytes # 1.5 K/mcL (0.6-4.6); Lymphocytes % 15.6 %; Mean Corpuscular HGB Conc 32.3 g/dL (31.6-35.5); Mean Corpuscular Hemoglobin 30.4 pg (28.0-33.3); Mean Corpuscular Volume 93.9 fL (83.0-100.0); Mean Platelet Volume 10.1 fL (9.4-12.4); Monocytes # 0.9 K/mcL (0.0-1.3); Monocytes % 9.4 %; Neutrophils # 6.4 K/mcL (1.6-8.9); Nucleated Red Blood Cells 0.2 /100 WBC (0); Platelet Count 264 K/mcL (140-400); Red Blood Count 3.13 M/mcL (4.19-5.50); Red Cell Distribution Width 13.5 % (11.5-14.5); Segmented Neutrophils % 69.3 %
--- NOTE | 2018-07-26 05:46 | Event Note ---
Date of Encounter: 07/26/18 Time of Encounter: 05:11 Alerted by pts. nurse RAKESH Clayton that pt. had become tachycardic and was SOB. Pt. was post-nephrectomy. Pt. denied any hx of Afib or atrial flutter but stated that he does have a minor blockage. Went to see pt. who was laying in bed. Stat EKG ordered which showed atrial flutter/tachycardia w/RVR, marked right axis deviation, and non-specific ST & T-wave abnormality. Pt. stated that he did not feel as though his heart was racing. VS: BP 127/80, HR 147, RR 20, SpO2 95% on 2L, and temp 98.5F. Discussed pt. w/Dr. Way d/t pts. new onset of atrial flutter. Recommendation to get IV access, administer 2.5 mg IVP metoprolol, and order a.m. labs. IV access obtained and order for IVP metoprolol placed. CBC and CMP series ordered for today and tomorrow. Nurse instructed to obtain VS Q15MIN x4 following administration of metoprolol and notify me to determine need for additional dosing. Pt. to be monitored closely.
[2018-07-26 06:03] LABS: Alanine Aminotransferase 26 Units/L (7-52); Albumin 2.9 g/dL (3.5-5.7); Albumin/Globulin Ratio 1.1 (1.1-2.2); Alkaline Phosphatase 82 Units/L (34-104); Aspartate Amino Transferase 76 Units/L (13-39); BUN/Creatinine Ratio 13 (6-26); Bilirubin,Total 1.6 mg/dL (0.3-1.0); Blood Urea Nitrogen 18 mg/dL (6-20); Calcium 8.3 mg/dL (8.6-10.3); Carbon Dioxide 33 mEq/L (23-29); Chloride 99 mEq/L (98-107); Globulin 2.7 g/dL (2.4-3.5); Glucose 115 mg/dL (70-105); Osmolality,Calculated 283 (280-300); Potassium 4.2 mEq/L (3.5-5.1); Sodium 135 mEq/L (136-145); Total Protein 5.6 g/dL (6.4-8.9); eGFR For Non-African Americans 53 (> 60)
[2018-07-26] MEDS ORDERED: Bisacodyl 10 MG RECTAL SUPPOSITORY RC ONE (07:15)
[2018-07-26] MEDS ORDERED: Lidocaine -MPF 1% 5 ML AMPUL INFILT ONE (07:30)
[2018-07-26] MEDS ORDERED: Furosemide 20 MG/2 ML VIAL IVP ONE (07:46)
--- NOTE | 2018-07-26 07:50 | Urology Progress Note ---
Date of Encounter: 07/26/18 Time of Encounter: 07:49 - Assessment and Plan (1) Renal mass, left Current Visit: Yes Status: Acute Assessment and plan: 57-year-old man postop day #6 status post left robotic nephrectomy. He now has atrial fibrillation with a rapid ventricular rate. The hospitalist has been consulted. I am concerned that he might be developing some erythema to his extraction wound. I will start him on some antibiotic today. We will also order a Lasix to diuresis. His hemoglobin is stable. White count is normal. I may need to open his wound. We will order an enema and a suppository to help with his bowel movements. He will likely need some form of anticoagulation upon discharge. His H&H is stable, but I am concerned about risk of delayed bleed. We will monitor his atrial fibrillation. I will hold off on anticoagulation at this point until closer to discharge. (2) Anemia following surgery Current Visit: Yes Status: Acute (3) Atrial fibrillation Current Visit: Yes Status: Acute Qualifiers: Atrial fibrillation type: unspecified Qualified Code(s): I48.91 - Unspecified atrial fibrillation Progress Note Narrative: Postop day #6 status post left robotic nephrectomy. Last night he developed atrial fibrillation with rapid ventricular rate. The hospitalist consult. He was given metoprolol. His rate is improved. Labs are obtained. H&H is stable. He still has lower extremity pitting edema. He says he is having difficulties moving his bowels. Objective Initial Vital Signs Temp Pulse Resp BP Pulse Ox 97.8 F 78 18 126/69 91 07/20/18 06:44 07/20/18 06:44 07/20/18 06:44 07/20/18 06:44 07/20/18 06:44 - General physical appearance Present: well developed, well nourished, no distress - Respiratory Present: normal respiratory effort - Abdomen Present: soft (Erythema was noted to the extraction wound with edema to the skin. Wounds are otherwise clean, dry, and intact.) - Labs 07/26/18 05:32 07/26/18 05:32 Diabetes panel 07/26/18 Range/Units 05:32 Sodium 135 L (136-145) mEq/L Potassium 4.2 (3.5-5.1) mEq/L Chloride 99 (98-107) mEq/L Carbon Dioxide 33 H (23-29) mEq/L BUN 18 (6-20) mg/dL Creatinine 1.38 H (0.70-1.30) mg/dL Glucose 115 H (70-105) mg/dL Calcium 8.3 L (8.6-10.3) mg/dL AST 76 H (13-39) Units/L ALT 26 (7-52) Units/L Alkaline Phosphatase 82 (34-104) Units/L Albumin 2.9 L (3.5-5.7) g/dL Calcium panel 07/26/18 Range/Units 05:32 Calcium 8.3 L (8.6-10.3) mg/dL Albumin 2.9 L (3.5-5.7) g/dL Pituitary panel 07/26/18 Range/Units 05:32 Sodium 135 L (136-145) mEq/L Potassium 4.2 (3.5-5.1) mEq/L Chloride 99 (98-107) mEq/L Carbon Dioxide 33 H (23-29) mEq/L BUN 18 (6-20) mg/dL Creatinine 1.38 H (0.70-1.30) mg/dL Glucose 115 H (70-105) mg/dL Calcium 8.3 L (8.6-10.3) mg/dL Adrenal panel 07/26/18 Range/Units 05:32 Sodium 135 L (136-145) mEq/L Potassium 4.2 (3.5-5.1) mEq/L Chloride 99 (98-107) mEq/L Carbon Dioxide 33 H (23-29) mEq/L BUN 18 (6-20) mg/dL Creatinine 1.38 H (0.70-1.30) mg/dL Glucose 115 H (70-105) mg/dL Calcium 8.3 L (8.6-10.3) mg/dL Total Bilirubin 1.6 H (0.3-1.0) mg/dL AST 76 H (13-39) Units/L ALT 26 (7-52) Units/L Alkaline Phosphatase 82 (34-104) Units/L Albumin 2.9 L (3.5-5.7) g/dL Consult Discharge Plan - Plan Additional Instructions: 1. No heavy lifting greater than 20 pounds x 4 weeks. 2. No tub baths x 2 weeks. 3. May shower. 4. He should follow up in 2 weeks for postoperative check. 5. He should return for any fevers, chills, nausea, vomiting, or significant swelling/ecchymosis. 6. He should hold aspirin and any other blood thinners for 1 week. Referrals: Vinicio Way MD [Partnered Physician] - (2 weeks for wound check.) NONE,PCP [Primary Care Provider] - Prescriptions: Docusate [Colace] 100 mg PO BID #60 capsule Oxycodone HCl/Acetaminophen [Percocet 5-325 mg Tablet] 1 each PO Q4H PRN 5 Days #20 tablet PRN Reason: Pain
[2018-07-26] MEDS ORDERED: ceFAZolin 2,000 MG in D5% in Water 100 ML IVPB SCH (08:00)
[2018-07-26] MEDS: ceFAZolin 2,000 MG in 0.9 % Sodium Chloride 100 ML IVPB SCH ×3 (08:55→20:28)
[2018-07-26] MEDS: *HR* Metformin 500 MG TABLET PO SCH ×2 (08:55→20:32)
[2018-07-26] MEDS: Loratadine 10 MG TABLET PO SCH (08:55)
--- NOTE | 2018-07-26 10:09 | Internal Medicine Consult Note ---
Date of Encounter: 07/26/18 Time of Encounter: 10:09 - Assessment and plan (1) Atrial flutter Current Visit: Yes Status: Acute Assessment and plan: Currently asymptomatic, EKG showed atrial flutter with some ST depression in anterior leads likely multifactorial, patient appears to have mild COPD exacerbation, NOEMI. Currently receiving Duo Neb therapy. Plan: IV Metoprolol prn with PO Echocardiogram TSH Chest x-ray Change Duo Neb to Xopenex, add Prednisone If metoprolol does not improve HR, will start Cardizem drip and consult Cardiology Hold off anticoagulation now given bleeding delayed bleeding. May need DVT prophylaxis dose of heparin. Qualifiers: Atrial flutter type: unspecified Qualified Code(s): I48.92 - Unspecified atrial flutter (2) COPD (chronic obstructive pulmonary disease) Current Visit: Yes Status: Acute Assessment and plan: Appears wheezing and slightly short of breath, change duo neb to xopenex and give daily prednisone for 5 day burst. Qualifiers: COPD type: unspecified COPD Qualified Code(s): J44.9 - Chronic obstructive pulmonary disease, unspecified (3) Diabetes Current Visit: Yes Status: Acute Qualifiers: Diabetes mellitus type: type 2 Diabetes mellitus emt intermediate insulin use: unspecified emt intermediate insulin use status Diabetes mellitus complication status: with unspecified complications Qualified Code(s): E11.8 - Type 2 diabetes mellitus with unspecified complications (4) Anemia following surgery Current Visit: Yes Status: Acute (5) Renal mass, left Current Visit: Yes Status: Acute - Time Spent With Patient Total time spent is greater than 50% in coordination of care (as documented) at patient's floor/unit and/or counseling patient: Internal Medicine - CN: HPI - Data of Consult Requesting Physician: Vinicio Way, - Consult Narrative History of present illness: Mr. Lr is a 57 year old male with history of COPD, diabetes, asthma, NOEMI on CPAP currently admitted s/p robotic nephrectomy. He is post-op day #6, and tolerated procedure well. He did have some delayed bleeding and so patient has been monitored for that. Overnight patient had HR noted to be 130-140s with BP 140/74. He was asymptomatic at that time. An EKG showed atrial flutter in anterior leads. He states he is compliant with CPAP every night. He denies any cardiac history. He has no known history of cardiac arrythmias. He currently has some wheezing, slightly worse SOB above his baseline per patient. He denies chest pain, palpitations, n/v, fevers/chills, numbness/tingling. Overnight he was given IV Lopressor 2.5 mg x2 and HR improved temporarily to 120 bpm Past Med Surg Social Fam HX - Past Medical History Medical history: asthma, COPD, diabetes Additional medical history: emphyzema,sleep apnea,pvd Psychiatric history: no psych history - Past Surgical History Additional surgical history: cyst removed from left elbow,cyst removed from left eye lid,plantars warts removed from feet,lower extremity for PVD - Social History Smoking Status: Former smoker Smokeless Tobacco Status: No Alcohol use: none Drug use: none Internal Medicine - CN: Meds Aclidinium [place] [Tudorza Pressair] 1 puff IH BID 07/20/18 [History] Albuterol Sulfate [Ventolin Hfa] 2 puff IH Q4-6H PRN 07/20/18 [History] Aspirin [Lo-Dose Aspirin EC] 81 mg PO DAILY 07/20/18 [History] Atorvastatin [Lipitor] 40 mg PO HS 07/20/18 [History] Fluticasone Propionate Nasal [Flonase] 1 spr NS DAILY PRN 07/20/18 [History] Ipratropium/Albuterol Neb [Duoneb] 3 ml IH Q6HR 07/20/18 [History] Lansoprazole [Prevacid] 15 mg PO DAILY 07/20/18 [History] Loratadine [Claritin] 10 mg PO DAILY 07/20/18 [History] Metformin HCl [Metformin HCl ER] 500 mg PO BID 07/20/18 [History] rOPINIRole [Requip] 2 mg PO HS 07/20/18 [History] Docusate [Colace] 100 mg PO BID #60 capsule 07/24/18 [Rx] Oxycodone HCl/Acetaminophen [Percocet 5-325 mg Tablet] 1 each PO Q4H PRN 5 Days #20 tablet 07/24/18 [Rx] Allergy/AdvReac Type Severity Reaction Status Date / Time No Known Allergies Allergy Verified 07/20/18 07:24 Hospitalist - CN: Exam - Constitutional Vitals: Temp Pulse Resp BP Pulse Ox 98.2 F 155 20 113/72 94 07/26/18 07:22 07/26/18 09:28 07/26/18 09:28 07/26/18 09:28 07/26/18 09:28 General appearance IM: Present: A&O X 3, morbidly obese Exam: . - Head Head exam: Present: atraumatic, normal inspection, normocephalic - ENT ENT exam: Present: mucous membranes moist - Neck Neck exam general surgery: Present: full ROM, normal inspection. Absent: lymphadenopathy, thyromegaly - Respiratory Respiratory exam: Present: decreased breath sounds, wheezes. Absent: accessory muscle use, prolonged expiratory phase - Cardiovascular Cardiovascular exam IM: Present: tachycardia - GI/Abdominal GI/Abdominal exam IM: Present: soft. Absent: tenderness, no peritoneal signs - Extremities Exam Extremities exam IM: Present: pedal edema Internal Medicine - CN: Reslt - Labs CBC & Chem 7: 07/26/18 05:32 07/26/18 05:32 Labs: Short CBC 07/26/18 Range/Units 05:32 WBC 9.3 (4.3-11.1) K/mcL Hgb 9.5 L (12.9-16.9) g/dL Hct 29.4 L (37.5-50.1) % Plt Count 264 D (140-400) K/mcL Neutrophils # 6.4 (1.6-8.9) K/mcL BMP 07/26/18 05:32 Sodium 135 L Potassium 4.2 Chloride 99 Carbon Dioxide 33 H BUN 18 Creatinine 1.38 H Glucose 115 H Calcium 8.3 L Liver Function 07/26/18 Range/Units 05:32 Total Bilirubin 1.6 H (0.3-1.0) mg/dL AST 76 H (13-39) Units/L ALT 26 (7-52) Units/L Alkaline Phosphatase 82 (34-104) Units/L Albumin 2.9 L (3.5-5.7) g/dL - ABG Interpretation ABG results: ABG ABG pH 7.27 pH Units (7.32-7.45) L 07/20/18 12:47 ABG pCO2 59 mmHg (35-45) H 07/20/18 12:47 ABG pO2 141 mmHg (85-104) H 07/20/18 12:47 ABG O2 Saturation 99 % (95-98) H 07/20/18 12:47 PT/INR, D-dimer PT 12.3 Seconds (9.4-12.1) H 07/21/18 05:28 Consult Discharge Plan - Plan Additional Instructions: 1. No heavy lifting greater than 20 pounds x 4 weeks. 2. No tub baths x 2 weeks. 3. May shower. 4. He should follow up in 2 weeks for postoperative check. 5. He should return for any fevers, chills, nausea, vomiting, or significant swelling/ecchymosis. 6. He should hold aspirin and any other blood thinners for 1 week. Referrals: Vinicio Way MD [Partnered Physician] - (2 weeks for wound check.) NONE,PCP [Primary Care Provider] - Prescriptions: Docusate [Colace] 100 mg PO BID #60 capsule Oxycodone HCl/Acetaminophen [Percocet 5-325 mg Tablet] 1 each PO Q4H PRN 5 Days #20 tablet PRN Reason: Pain
[2018-07-26] MEDS: predniSONE 20 MG TABLET PO SCH (12:27)
--- NOTE | 2018-07-26 12:43 | Event Note ---
Date of Encounter: 07/26/18 Time of Encounter: 12:40 Using local anesthetic the skin of the extraction site was infiltrated with 1% lidocaine. A scalpel was used to incise the skin for about an inch along the incision line. A mild amount of bloody urethral discharge was noted. There is no purulence. The wound was packed with quarter inch packing strips.
[2018-07-26 14:30] LABS: Thyroid Stimulating Hormone 2.334 mcIU/mL (0.340-5.600)
[2018-07-26] MEDS: Levalbuterol Neb 1.25 MG/3 ML IH SCH ×2 (15:49→22:54)
[2018-07-26] MEDS ORDERED: 0.9 % Sodium Chloride 500 ML ONE (16:43)
[2018-07-26] MEDS: *HR* Heparin 5,000 UNIT/ML VIAL SQ SCH (18:24)
[2018-07-26] MEDS: rOPINIRole 1 MG TABLET PO SCH (20:32)
[2018-07-26] MEDS: Furosemide 40 MG/4 ML VIAL IVP SCH (21:28)
[2018-07-27] MEDS: *HR* OxyCODONE Immed Rel 5 MG TABLET PO PRN ×4 (01:46→19:31)
[2018-07-27] MEDS: ceFAZolin 2,000 MG in 0.9 % Sodium Chloride 100 ML IVPB SCH ×4 (02:25→20:39)
[2018-07-27] MEDS: Levalbuterol Neb 1.25 MG/3 ML IH SCH ×4 (04:33→21:22)
[2018-07-27 05:33] LABS: Basophils % 0.2 %; Eosinophils % 0.2 %; Hematocrit 26.4 % (37.5-50.1); Hemoglobin 8.7 g/dL (12.9-16.9); Immature Granulocytes % 1.3 % (0-4); Lymphocytes # 1.4 K/mcL (0.6-4.6); Mean Corpuscular Hemoglobin 30.3 pg (28.0-33.3); Mean Platelet Volume 10.1 fL (9.4-12.4); Monocytes # 0.9 K/mcL (0.0-1.3); Monocytes % 8.3 %; Nucleated Red Blood Cells 0.2 /100 WBC (0); Platelet Count 293 K/mcL (140-400); Red Blood Count 2.87 M/mcL (4.19-5.50); Red Cell Distribution Width 13.6 % (11.5-14.5)
[2018-07-27] MEDS: *HR* Heparin 5,000 UNIT/ML VIAL SQ SCH (05:34)
[2018-07-27 05:51] LABS: Alanine Aminotransferase 19 Units/L (7-52); Albumin 2.8 g/dL (3.5-5.7); Albumin/Globulin Ratio 1.1 (1.1-2.2); Alkaline Phosphatase 77 Units/L (34-104); Aspartate Amino Transferase 59 Units/L (13-39); BUN/Creatinine Ratio 14 (6-26); Blood Urea Nitrogen 19 mg/dL (6-20); Calcium 8.1 mg/dL (8.6-10.3); Carbon Dioxide 31 mEq/L (23-29); Chloride 100 mEq/L (98-107); Globulin 2.6 g/dL (2.4-3.5); Glucose 131 mg/dL (70-105); Osmolality,Calculated 286 (280-300); Sodium 136 mEq/L (136-145); Total Protein 5.4 g/dL (6.4-8.9); eGFR For Non-African Americans 53 (> 60)
[2018-07-27] MEDS: Acetaminophen 325 MG TABLET PO PRN (05:57)
[2018-07-27] MEDS ORDERED: Perflutren Lipid Microsphere 1.3 ML in 0.9 % Sodium Chloride 8.7 ML IVP ONE (07:06)
[2018-07-27] MEDS: Furosemide 40 MG/4 ML VIAL IVP SCH ×2 (08:02→16:24)
[2018-07-27] MEDS: Loratadine 10 MG TABLET PO SCH (08:07)
[2018-07-27] MEDS: *HR* Metformin 500 MG TABLET PO SCH (08:08)
[2018-07-27] MEDS: predniSONE 20 MG TABLET PO SCH (08:09)
--- NOTE | 2018-07-27 09:01 | Urology Progress Note ---
Addendum entered and electronically signed by Vinicio Way MD 07/27/18 12:18: The patient was seen and examined with the physician's procurement assistant. I agree with the assessment and plan. He still has some erythema to the left flank. We will continue him on the cefazolin for now. Appreciate hospitalist support. If cellulitis does not improve, we may need to consider CT scan again to confirm there is no undrained fluid collection. He can continue with general diet. Appreciate cardiology support as well. Original Note: Date of Encounter: 07/27/18 Time of Encounter: 08:10 - Assessment and Plan (1) Renal mass, left Current Visit: Yes Status: Acute Assessment and plan: Patient is a 57-year-old male who is 7 days postoperative from a left robotic nephrectomy. Pathology reveals clear cell renal carcinoma stage TIb. Patient states he is asymptomatic from newly diagnosed atrial flutter. Wound care was assessed at bedside, and patient has been placed on IV Cefazolin. Left lower quadrant wound packing removed and replaced with new 1/4 in. iodoform packing and new dressing applied. Vital signs are stable and afebrile. White blood cell count is reassuring. Will await cardiology recommendations. Progress Note Subjective: no new complaints, feels better Narrative: POD# 7. Patient seen and examined sitting upright in bed eating breakfast in no apparent distress. Patient is tolerating normal diet without nausea or vomiting. Patient is voiding without difficulty. Patient denies significant pain, chest pain, dyspnea, calf pain, fever, chills. Objective Initial Vital Signs Temp Pulse Resp BP Pulse Ox 97.8 F 78 18 126/69 91 07/20/18 06:44 07/20/18 06:44 07/20/18 06:44 07/20/18 06:44 07/20/18 06:44 - General physical appearance Present: well developed, no distress - Respiratory Present: normal expansion, normal respiratory effort - Abdomen Present: soft, non tender, wound (Primary incisions clean, dry, intact; with exception of left lower quadrant wound which was partially opened and packed with quarter inch iodoform; surrounding erythema and induration noted to left lower quadrant wound) - Integumentary Present: no rash, no growths - Musculoskeletal Present: normal posture - Psychiatric Present: oriented to time, oriented to person, oriented to place, speech is normal, memory intact - Labs 07/27/18 05:06 07/27/18 05:06 Diabetes panel 07/26/18 07/27/18 Range/Units 05:32 05:06 Sodium 135 L 136 (136-145) mEq/L Potassium 4.2 4.0 (3.5-5.1) mEq/L Chloride 99 100 (98-107) mEq/L Carbon Dioxide 33 H 31 H (23-29) mEq/L BUN 18 19 (6-20) mg/dL Creatinine 1.38 H 1.38 H (0.70-1.30) mg/dL Glucose 115 H 131 H (70-105) mg/dL Calcium 8.3 L 8.1 L (8.6-10.3) mg/dL AST 76 H 59 H (13-39) Units/L ALT 26 19 (7-52) Units/L Alkaline Phosphatase 82 77 (34-104) Units/L Albumin 2.9 L 2.8 L (3.5-5.7) g/dL Thyroid panel 07/26/18 Range/Units 05:32 TSH 2.334 (0.340-5.600) mcIU/mL Calcium panel 07/26/18 07/27/18 Range/Units 05:32 05:06 Calcium 8.3 L 8.1 L (8.6-10.3) mg/dL Albumin 2.9 L 2.8 L (3.5-5.7) g/dL Pituitary panel 07/26/18 07/27/18 Range/Units 05:32 05:06 Sodium 135 L 136 (136-145) mEq/L Potassium 4.2 4.0 (3.5-5.1) mEq/L Chloride 99 100 (98-107) mEq/L Carbon Dioxide 33 H 31 H (23-29) mEq/L BUN 18 19 (6-20) mg/dL Creatinine 1.38 H 1.38 H (0.70-1.30) mg/dL Glucose 115 H 131 H (70-105) mg/dL Calcium 8.3 L 8.1 L (8.6-10.3) mg/dL TSH 2.334 (0.340-5.600) mcIU/mL Adrenal panel 07/26/18 07/27/18 Range/Units 05:32 05:06 Sodium 135 L 136 (136-145) mEq/L Potassium 4.2 4.0 (3.5-5.1) mEq/L Chloride 99 100 (98-107) mEq/L Carbon Dioxide 33 H 31 H (23-29) mEq/L BUN 18 19 (6-20) mg/dL Creatinine 1.38 H 1.38 H (0.70-1.30) mg/dL Glucose 115 H 131 H (70-105) mg/dL Calcium 8.3 L 8.1 L (8.6-10.3) mg/dL Total Bilirubin 1.6 H 1.0 (0.3-1.0) mg/dL AST 76 H 59 H (13-39) Units/L ALT 26 19 (7-52) Units/L Alkaline Phosphatase 82 77 (34-104) Units/L Albumin 2.9 L 2.8 L (3.5-5.7) g/dL Consult Discharge Plan - Plan Additional Instructions: 1. No heavy lifting greater than 20 pounds x 4 weeks. 2. No tub baths x 2 weeks. 3. May shower. 4. He should follow up in 2 weeks for postoperative check. 5. He should return for any fevers, chills, nausea, vomiting, or significant swelling/ecchymosis. 6. He should hold aspirin and any other blood thinners for 1 week. Referrals: Vinicio Way MD [Partnered Physician] - (2 weeks for wound check.) NONE,PCP [Primary Care Provider] - Prescriptions: Docusate [Colace] 100 mg PO BID #60 capsule Oxycodone HCl/Acetaminophen [Percocet 5-325 mg Tablet] 1 each PO Q4H PRN 5 Days #20 tablet PRN Reason: Pain
--- NOTE | 2018-07-27 09:54 | Internal Med Progress Note ---
Hospitalist Progress Note - Encounter Date of Encounter: 07/27/18 Time of Encounter: 11:55 - Exam Vitals: Temp Pulse Resp BP Pulse Ox 98.3 F 98 19 127/73 98 07/27/18 07:03 07/27/18 07:03 07/27/18 07:03 07/27/18 07:03 07/27/18 08:28 Exam: Gen - Awake, alert, oriented x 3, no acute distress HEENT - NCAT, PERRLA, EOMI, hearing grossly intact, oropharynx benign CV - irregularly irregular Resp - Normal WOB, CTAB, no W/R/R GI - Soft, NT/ND, no masses, normal bowel sounds, Skin - Warm, dry, no rashes/lesions/ulcers Psych - Normal mood and affect, no depression or anxiety - Assessment and Plan (1) Heart failure with preserved ejection fraction Current Visit: Yes Status: Acute Assessment and Plan: On BID lasix. Monitor ins and outs Echo showed preserved EF with dilated right ventricle (2) Atrial flutter Current Visit: Yes Status: Acute Assessment and Plan: Pt had atrial flutter and was started on cardizem drip He is rate controlled and has been transitioned to po cardizem. Cardiology following and plan to start on heparin drip and transition to NOAC (3) Renal mass, left Current Visit: Yes Status: Acute Assessment and Plan: PO #& s/p left nehprectomy. Pathology shows clear cell renal carcinoma. Urology following (4) Anemia following surgery Current Visit: Yes Status: Acute Assessment and Plan: Stable (5) COPD (chronic obstructive pulmonary disease) Current Visit: Yes Status: Acute Assessment and Plan: Nebs and steroids PRN (6) Diabetes Current Visit: Yes Status: Acute Assessment and Plan: D/C metformin. Start on sliding scale insulin DVT Prophylaxis: Heparin drip - Time Spent with Patient Total time spent is greater than 50% in coordination of care (as documented) at patient's floor/unit and/or counseling patient: Internal Medicine: Result - Labs CBC & Chem 7: 07/27/18 05:06 07/27/18 05:06 Labs: Short CBC 07/27/18 Range/Units 05:06 WBC 10.5 (4.3-11.1) K/mcL Hgb 8.7 L (12.9-16.9) g/dL Hct 26.4 L (37.5-50.1) % Plt Count 293 (140-400) K/mcL Neutrophils # 8.0 (1.6-8.9) K/mcL BMP 07/26/18 07/27/18 05:32 05:06 Sodium 135 L 136 Potassium 4.2 4.0 Chloride 99 100 Carbon Dioxide 33 H 31 H BUN 18 19 Creatinine 1.38 H 1.38 H Glucose 115 H 131 H Calcium 8.3 L 8.1 L Liver Function 07/26/18 07/27/18 Range/Units 05:32 05:06 Total Bilirubin 1.6 H 1.0 (0.3-1.0) mg/dL AST 76 H 59 H (13-39) Units/L ALT 26 19 (7-52) Units/L Alkaline Phosphatase 82 77 (34-104) Units/L Albumin 2.9 L 2.8 L (3.5-5.7) g/dL - ABG Interpretation ABG results: ABG ABG pH 7.27 pH Units (7.32-7.45) L 07/20/18 12:47 ABG pCO2 59 mmHg (35-45) H 07/20/18 12:47 ABG pO2 141 mmHg (85-104) H 07/20/18 12:47 ABG O2 Saturation 99 % (95-98) H 07/20/18 12:47 PT/INR, D-dimer PT 12.3 Seconds (9.4-12.1) H 07/21/18 05:28 - Impressions Impressions Chest X-Ray 07/26/18 11:06 IMPRESSION: No acute process. D/ / Raffi Mcneill MD / Raffi Mcneill MD Interpreting Provider: Raffi Mcneill MD Echocardiogram 07/27/18 10:14 Impressions: Technically sub-optimal due to body habitus and poor echocardiographic windows. LVEF grossly 60-65%. Grossly normal LV chamber size, wall thickness and grossly normal systolic function. Indeterminate diastolic function. Mildly dilated right ventricle with normal right ventricular function. No significant valvular dysfunction. Unable to estimate RVSP due to lack of IVC visualization. Left Ventricular Wall Motion: Rest Echo Findings The mid anterior septal and basal anterior septal anaya were not visualized. All other wall segments showed normal motion. Findings: Study Quality * Technically sub-optimal due to body habitus and poor echocardiographic windows, even with definity. ECG Findings * Atrial fibrillation. Left Ventricle * LVEF grossly 60-65%. * Normal LV chamber size, wall thickness and grossly normal systolic function. Not all anaya well visualized. * Indeterminate diastolic function. * Definity echo contrast was used. Right Ventricle * Mildly dilated right ventricle. * Normal right ventricular function. Left Atrium * Normal left atrial size. Right Atrium * Normal right atrial size. Interatrial Septum * Interatrial septum not well evaluated. Aortic Valve * Aortic valve not well visualized. * No aortic stenosis. * No aortic regurgitation. Mitral Valve * No mitral stenosis. * Mitral valve not well visualized. * Trace mitral regurgitation. Tricuspid Valve * Tricuspid valve not well visualized. * Trace tricuspid regurgitation. * No tricuspid stenosis. * Estimated RVSP is RV-RA gradient 31 mmHg. * * Unable to estimate RVSP due to lack of IVC visualization. Pulmonic Valve * Pulmonic valve not well visualized. * No pulmonic stenosis. * Trace pulmonic regurgitation. Aorta * Normally sized aortic root. Pericardium * The pericardium appears normal. IVC * The IVC is not well evaluated. Consult Discharge Plan - Plan Additional Instructions: 1. No heavy lifting greater than 20 pounds x 4 weeks. 2. No tub baths x 2 weeks. 3. May shower. 4. He should follow up in 2 weeks for postoperative check. 5. He should return for any fevers, chills, nausea, vomiting, or significant swelling/ecchymosis. 6. He should hold aspirin and any other blood thinners for 1 week. Referrals: Vinicio Way MD [Partnered Physician] - (2 weeks for wound check.) NONE,PCP [Primary Care Provider] - Prescriptions: Docusate [Colace] 100 mg PO BID #60 capsule Oxycodone HCl/Acetaminophen [Percocet 5-325 mg Tablet] 1 each PO Q4H PRN 5 Days #20 tablet PRN Reason: Pain (2) Atrial flutter Qualifiers: Atrial flutter type: unspecified Qualified Code(s): I48.92 - Unspecified atrial flutter (5) COPD (chronic obstructive pulmonary disease) Qualifiers: COPD type: unspecified COPD Qualified Code(s): J44.9 - Chronic obstructive pulmonary disease, unspecified (6) Diabetes Qualifiers: Diabetes mellitus type: type 2 Diabetes mellitus fdc insulin use: 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
[2018-07-27] MEDS ORDERED: Furosemide 20 MG/2 ML VIAL IVP ONE (10:29)
[2018-07-27] MEDS: Diltiazem CD (24hr) 120 MG CAPSULE PO SCH (10:49)
--- NOTE | 2018-07-27 11:20 | Cardiology Consult Note ---
Addendum entered and electronically signed by Temo Walker MD 07/27/18 13:28: I examined this patient and my medical decision-making was reviewed with the Resident Physician. I agree with the documented findings, disposition and treatment plan as described except to the extent set forth below. A/P: AF Anemia following surgery NOEMI DM Recommend chronic anticoagulation to reduce risk of CVA if he can tolerate overnight heparin drip - change to NOAC if affordable (ie eliquis 5mg po bid or xarelto 20mg qhs; if not, then coumadin INR 2-3). Continue rate control and uptitrate orals as you are. Thank you for the consult, Temo Walker MD [facility] Original Note: Date of Encounter: 07/27/18 Time of Encounter: 11:02 Assessment and Plan (1) Atrial flutter Current Visit: Yes Status: Acute new on set atrial flutter with rvr requring patient to be stared on cardizem drip echocardiogram shows: LVEF 60-65 percent with normal LV chamber size and wall thickness and grossly normal systolic function however it was sub-optimal due to body habitus. dilated right ventricle, no valvular dysfunction. CHADSVASC is 2 for DM and vascular disease plan: convert to oral cardizem (patient already started on Cardizem 120mg CD by hospitalist). Since patient had bleeding from surgery we will start patient on heparin drip for anticoagulation and trend hemoglobin. If hemoglobin is stable will transition patient to DOAC. Qualifiers: Atrial flutter type: unspecified Qualified Code(s): I48.92 - Unspecified atrial flutter (2) Renal mass, left Current Visit: Yes Status: Acute as per urology (3) Anemia following surgery Current Visit: Yes Status: Acute (4) COPD (chronic obstructive pulmonary disease) Current Visit: Yes Status: Acute patient being treated for acute exacerbation by primary team. Qualifiers: COPD type: unspecified COPD Qualified Code(s): J44.9 - Chronic obstructive pulmonary disease, unspecified (5) Diabetes Current Visit: Yes Status: Acute Qualifiers: Diabetes mellitus type: type 2 Diabetes mellitus snf insulin use: unspecified snf insulin use status Diabetes mellitus complication status: with unspecified complications Qualified Code(s): E11.8 - Type 2 diabe lb mellitus with unspecified complications Discussion w patient/family: The assessment and plan as outlined above was discussed with the patient and/or family members who expressed understanding and agreement. All questions were answered. Thank you for involving us in the care of your patient. Please call with any questions. History of Present Illness Consult date: 07/27/18 Consult reason: aflutter with rvr Chief complaint: left renal mass History of present illness: Mr. Lr is a 57 year old male hx of COPD, diabetes, NOEMI on CPAP, previous smoker quit 2015, is s/p left nephrectomy POD 7. Cardiology was consulted as patient had episode of aflutter rvr on 07/26 requiring starting Cardizem drip and currently is rate controlled, in sinus rhythm. During surgery patient did develop anemia 2nd to bleeding and Ct abdomen showed a hematoma. His hemeglobin has been stable at 7.6 for past 72 hours. Patient denies chest pain, palpitations sob, blurry vision, diaphoresis. Has abdominal pain s/p surgery, LE edema. Reports never having hx of irregular heart rhythms. Patient was seen by Dr. Us for preop-clearnace for surgery. Patient had pharmacological stress study at [facility] November 2017 which was negative. Echocardiogr am showe EF 55-60% without valvular dysfunction with right atrial dilation and right ventricular dilation. He has a history of vascular disease and in 2008 has some intervention in his RLE by a vascular surgeon in [place]. Recent CTA to assess left renal mass also showed non-occlusive vascular disease. Past Med Surg Social Fam HX - Past Medical History Medical history: asthma, COPD, diabetes Additional medical history: emphyzema,sleep apnea,pvd Psychiatric history: no psych history - Past Surgical History Additional surgical history: cyst removed from left elbow,cyst removed from left eye lid,plantars warts removed from feet,lower extremity for PVD - Social History Smoking Status: Former smoker Smokeless Tobacco Status: No Alcohol use: none Drug use: none Medications and Allergies Aclidinium Buena [Tudorza Pressair] 1 puff IH BID 07/20/18 [History] Albuterol Sulfate [Ventolin Hfa] 2 puff IH Q4-6H PRN 07/20/18 [History] Aspirin [Lo-Dose Aspirin EC] 81 mg PO DAILY 07/20/18 [History] Atorvastatin [Lipitor] 40 mg PO HS 07/20/18 [History] Fluticasone Propionate Nasal [Flonase] 1 spr NS DAILY PRN 07/20/18 [History] Ipratropium/Albuterol Neb [Duoneb] 3 ml IH Q6HR 07/20/18 [History] Lansoprazole [Prevacid] 15 mg PO DAILY 07/20/18 [History] Loratadine [Claritin] 10 mg PO DAILY 07/20/18 [History] Metformin HCl [Metformin HCl ER] 500 mg PO BID 07/20/18 [History] rOPINIRole [Requip] 2 mg PO HS 07/20/18 [History] Docusate [Colace] 100 mg PO BID #60 capsule 07/24/18 [Rx] Oxycodone HCl/Acetaminophen [Percocet 5-325 mg Tablet] 1 each PO Q4H PRN 5 Days #20 tablet 07/24/18 [Rx] Allergy/AdvReac Type Severity Reaction Status Date / Time No Known Allergies Allergy Verified 07/20/18 07:24 All Systems Review: The remainder of the systems were reviewed and are negative Review of Systems: Constitutional: Denies fever, chills HEENT: Denies headache, trauma, blurry vision, eye discharge, ear pain, ear discharge neck pain, sore throat, rhinorrhea Heart: Denies chest pain palpitations, LE edema Lungs: Denies shortness of breath cough Abdomen: reports abdominal pain Denies nausea vomiting diarrhea MSK: Denies back pain, falls, joint pain Kidney: Denies dysuria, hematuria Skin: Denies rash, ulcers Neuro: Denies numbness and tingling Psych: denies axniety, depression Physical Examination Vital Signs, Last 4 Hours Temp Pulse Resp BP Pulse Ox 07/27/18 10:13 98.2 F 83 16 136/64 95 07/27/18 08:28 98 07/27/18 07:03 98.3 F 98 19 127/73 98 General: Conversant, No Apparent Distress HEENT: Atraumatic, Normocephaly, Mucus Membranes Moist Neck: No JVD, Normal carotid pulses Cardiac: Reg Rate and Rhythm, Normal S1 and S2, No Murmur Lungs: Normal Breath Sounds, No Wheeze, Rales, Rhonchi Neuro: Alert and responsive, No focal deficits noted Abdomen: Soft, Other (distended. incisions intact without draininage or surrounding erythemia. distant bowel sounds) Skin: No rashes noted on visualized skin Musculoskeletal: No Chest Wall Tenderness Extremities: No Clubbing, No Cyanosis, Normal Pulses, Other (1+ edema b/l ) Results 07/27/18 05:06 07/27/18 05:06 Lab Results 07/26/18 07/26/18 07/27/18 05:32 14:30 05:06 WBC 10.5 Hgb 8.7 L Hct 26.4 L Plt Count 293 Sodium 135 L Potassium 4.2 Chloride 99 Carbon Dioxide 33 H BUN 18 Creatinine 1.38 H Glucose 115 H Calcium 8.3 L Total Bilirubin 1.6 H AST 76 H ALT 26 Alkaline Phosphatase 82 B-Natriuretic Peptide 285 H TSH 2.334 07/27/18 05:06 WBC Hgb Hct Plt Count Sodium 136 Potassium 4.0 Chloride 100 Carbon Dioxide 31 H BUN 19 Creatinine 1.38 H Glucose 131 H Calcium 8.1 L Total Bilirubin 1.0 AST 59 H ALT 19 Alkaline Phosphatase 77 B-Natriuretic Peptide TSH Consult Discharge Plan - Plan Additional Instructions: 1. No heavy lifting greater than 20 pounds x 4 weeks. 2. No tub baths x 2 weeks. 3. May shower. 4. He should follow up in 2 weeks for postoperative check. 5. He should return for any fevers, chills, nausea, vomiting, or significant swelling/ecchymosis. 6. He should hold aspirin and any other blood thinners for 1 week. Referrals: Vinicio Way MD [Partnered Physician] - (2 weeks for wound check.) NONE,PCP [Primary Care Provider] - Prescriptions: Docusate [Colace] 100 mg PO BID #60 capsule Oxycodone HCl/Acetaminophen [Percocet 5-325 mg Tablet] 1 each PO Q4H PRN 5 Days #20 tablet PRN Reason: Pain
[2018-07-27] MEDS ORDERED: *HR* Heparin 5,000 UNIT/ML VIAL IVP PRN ×2 (11:28)
[2018-07-27] MEDS ORDERED: *HR* Heparin 5,000 UNIT/ML VIAL IVP ONE (11:28)
[2018-07-27] MEDS ORDERED: Dextrose Gel 15 GM/37.5 ML TUBE PO PRN ×2 (12:07)
[2018-07-27] MEDS ORDERED: D5% in Water 1,000 ML IVC PRN (12:07)
[2018-07-27] MEDS ORDERED: *HR* Dextrose 50 % in Water (Syg) 50 ML SYRINGE IVP PRN (12:07)
[2018-07-27 12:09] LABS: Heparin anti-factor XA UFH 0.02 IU/mL (0.30-0.70)
[2018-07-27 12:10] LABS: INR 0.9; Prothrombin Time 10.3 Seconds (9.4-12.1)
[2018-07-27] MEDS: Heparin 25,000 UNIT/500 ML D5W 25,000 UNIT/500 ML BAG IVC SCH (12:29)
[2018-07-27] MEDS: Insulin LISPRO 300 UNITS/3 ML VIAL SQ SCH (16:23)
[2018-07-27] MEDS: rOPINIRole 1 MG TABLET PO SCH (20:40)
--- NOTE | 2018-07-27 21:14 | Electrocardiograph Report ---
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
[2018-07-28] MEDS: Heparin 25,000 UNIT/500 ML D5W 25,000 UNIT/500 ML BAG IVC SCH ×2 (01:30→16:30)
[2018-07-28] MEDS: *HR* OxyCODONE Immed Rel 5 MG TABLET PO PRN ×3 (01:36→16:25)
[2018-07-28] MEDS: ceFAZolin 2,000 MG in 0.9 % Sodium Chloride 100 ML IVPB SCH ×3 (01:54→13:23)
[2018-07-28 02:17] LABS: Basophils % 0.3 %; Eosinophils % 0.3 %; Hematocrit 29.9 % (37.5-50.1); Immature Granulocytes % 1.5 % (0-4); Lymphocytes # 1.9 K/mcL (0.6-4.6); Lymphocytes % 13.9 %; Mean Corpuscular HGB Conc 33.4 g/dL (31.6-35.5); Mean Corpuscular Hemoglobin 30.5 pg (28.0-33.3); Mean Corpuscular Volume 91.2 fL (83.0-100.0); Mean Platelet Volume 10.1 fL (9.4-12.4); Monocytes # 0.9 K/mcL (0.0-1.3); Monocytes % 6.6 %; Neutrophils # 10.7 K/mcL (1.6-8.9); Nucleated Red Blood Cells 0.3 /100 WBC (0); Platelet Count 388 K/mcL (140-400); Red Blood Count 3.28 M/mcL (4.19-5.50); Red Cell Distribution Width 14.1 % (11.5-14.5); Segmented Neutrophils % 77.4 %
[2018-07-28] MEDS: Levalbuterol Neb 1.25 MG/3 ML IH SCH ×4 (04:13→22:04)
[2018-07-28] MEDS: Furosemide 40 MG/4 ML VIAL IVP SCH ×2 (07:28→16:25)
[2018-07-28] MEDS: Insulin LISPRO 300 UNITS/3 ML VIAL SQ SCH ×3 (07:31→16:35)
[2018-07-28] MEDS: Loratadine 10 MG TABLET PO SCH (07:32)
[2018-07-28] MEDS: Diltiazem CD (24hr) 120 MG CAPSULE PO SCH (07:32)
[2018-07-28] MEDS: predniSONE 20 MG TABLET PO SCH (07:35)
--- NOTE | 2018-07-28 08:07 | Urology Progress Note ---
Addendum entered and electronically signed by Vinicio Way MD 07/28/18 08:42: Patient seen and examined with the physician's business development assistant. I agree with her assessment and plan. I will order a CT scan to evaluate for any possible wound infection. I will change antibiotic to vancomycin. White blood cell count is rising. Appreciate hospitalist support. Original Note: Date of Encounter: 07/28/18 Time of Encounter: 07:40 - Assessment and Plan (1) Renal mass, left Current Visit: Yes Status: Acute Assessment and plan: Patient is a 57-year-old male who presents 8 days postoperatively from a left robotic-assisted nephrectomy. There is some concern for cellulitis surrounding the left flank wound extraction site. We will proceed with a CT scan of the abdomen and pelvis as well as change Cefazolin to Vancomycin for more broad- spectrum coverage. White blood cell count is 13.5. Vital signs are stable and afebrile. Progress Note Subjective: no new complaints, feels better Narrative: POD #8. Patient seen and examined sitting upright in bed in no apparent distress. Patient is tolerating normal diet without nausea or vomiting. Patient is voiding without difficulty. Patient reports feeling much better as dependant edema is resolving. Patient was able to pass BM with suppository use. Patient denies fever, chills, chest pain, dyspnea, calf pain. Objective Initial Vital Signs Temp Pulse Resp BP Pulse Ox 97.8 F 78 18 126/69 91 07/20/18 06:44 07/20/18 06:44 07/20/18 06:44 07/20/18 06:44 07/20/18 06:44 - General physical appearance Present: well developed, no distress, no pain, obese - Respiratory Present: normal expansion, normal respiratory effort - Abdomen Present: soft, non tender, wound (primary incisions CDI, LLQ wound with surrounding erythema and induration ) - Genitourinary Urine Appearance: Present: Clear - Integumentary Present: no rash, no abnormal pigmentation - Musculoskeletal Present: normal posture - Psychiatric Present: oriented to time, oriented to person, oriented to place, speech is normal, memory intact - Labs 07/28/18 02:07 07/27/18 05:06 Consult Discharge Plan - Plan Additional Instructions: 1. No heavy lifting greater than 20 pounds x 4 weeks. 2. No tub baths x 2 weeks. 3. May shower. 4. He should follow up in 2 weeks for postoperative check. 5. He should return for any fevers, chills, nausea, vomiting, or significant swelling/ecchymosis. 6. He should hold aspirin and any other blood thinners for 1 week. Referrals: Vinicio Way MD [Partnered Physician] - (2 weeks for wound check.) NONE,PCP [Primary Care Provider] - Prescriptions: Docusate [Colace] 100 mg PO BID #60 capsule Oxycodone HCl/Acetaminophen [Percocet 5-325 mg Tablet] 1 each PO Q4H PRN 5 Days #20 tablet PRN Reason: Pain
[2018-07-28] MEDS ORDERED: Lidocaine -MPF 1% 5 ML AMPUL INFILT ONE (08:35)
--- NOTE | 2018-07-28 09:16 | Internal Med Progress Note ---
Hospitalist Progress Note - Encounter Date of Encounter: 07/28/18 Time of Encounter: 09:13 - Subjective Interval History: 57 M admitted to Urology service , POD s/p L nephrectomy for renal mass Incidental finding of Afib with RVR in-patient Cardiology is following Complains this mrn are of scrotal swelling, and wanting to ambulate HR uncontrolled overnight, BP this a.m low normal Patient is asymptomatic Antibiotic change done by urology noted-no cultures in chart - Exam Vitals: Temp Pulse Resp BP Pulse Ox 97.7 F 150 18 94/62 96 07/28/18 07:30 07/28/18 07:30 07/28/18 07:30 07/28/18 07:30 07/28/18 08:27 Exam: Gen - Awake, alert, oriented x 3, no acute distress, morbidly obese HEENT - NCAT, PERRLA, EOMI, hearing grossly intact, oropharynx benign Heart -S1, S2, tachy, irregularly irregular, no m/g/r Resp - CTAB, diminished at the bases, likley due to body habitus GI - Soft, distended, hyperpigmented, blanching , dressing on LLQ soaked, BS present in all quadrants Back: NO CVA tenderness Skin - Warm, dry, no rashes/lesions/ulcers Psych -Appropriate affect : Grossly edematous scrotum, no evidence of gangrene Extremities: Trace bilateral piting pedal edema - Assessment and Plan (1) Renal mass, left Current Visit: Yes Status: Acute Assessment and Plan: POD 8 & s/p left nehprectomy. Pathology shows clear cell renal carcinoma. Urology following Abdomen and pelvis CAT scan noted for decreased inflammation at the bedside of the nephrectomy site, however suspicious for worsening scrotal edema and 20 has gangrene Scrotum examined this morning, shows no gangrene Urology is following (2) Anemia following surgery Current Visit: Yes Status: Acute Assessment and Plan: Stable (3) COPD (chronic obstructive pulmonary disease) Current Visit: Yes Status: Acute Assessment and Plan: Nebs and steroids PRN (4) Diabetes Current Visit: Yes Status: Chronic Assessment and Plan: Continue on sliding scale insulin (5) Atrial flutter Current Visit: Yes Status: Acute Assessment and Plan: Pt had atrial flutter , new diagnosis HR uncontrolled On Cardizem, metoprolol Hepraind rip, continue same Cardio following For transition to NOACs prior to discharge (6) Heart failure with preserved ejection fraction Current Visit: Yes Status: Acute Assessment and Plan: On BID lasix. Monitor ins and outs Echo showed preserved EF with dilated right ventricle - Time Spent with Patient Total time spent is greater than 50% in coordination of care (as documented) at patient's floor/unit and/or counseling patient: Internal Medicine: Result - Labs CBC & Chem 7: 07/28/18 02:07 07/27/18 05:06 Labs: Short CBC 07/28/18 Range/Units 02:07 WBC 13.8 H (4.3-11.1) K/mcL Hgb 10.0 L (12.9-16.9) g/dL Hct 29.9 L (37.5-50.1) % Plt Count 388 (140-400) K/mcL Neutrophils # 10.7 H (1.6-8.9) K/mcL - ABG Interpretation ABG results: ABG ABG pH 7.27 pH Units (7.32-7.45) L 07/20/18 12:47 ABG pCO2 59 mmHg (35-45) H 07/20/18 12:47 ABG pO2 141 mmHg (85-104) H 07/20/18 12:47 ABG O2 Saturation 99 % (95-98) H 07/20/18 12:47 PT/INR, D-dimer PT 10.3 Seconds (9.4-12.1) 07/27/18 11:44 - Impressions Impressions Echocardiogram 07/27/18 10:14 Impressions: Technically sub-optimal due to body habitus and poor echocardiographic windows. LVEF grossly 60-65%. Grossly normal LV chamber size, wall thickness and grossly normal systolic function. Indeterminate diastolic function. Mildly dilated right ventricle with normal right ventricular function. No significant valvular dysfunction. Unable to estimate RVSP due to lack of IVC visualization. Left Ventricular Wall Motion: Rest Echo Findings The mid anterior septal and basal anterior septal anaya were not visualized. All other wall segments showed normal motion. Findings: Study Quality * Technically sub-optimal due to body habitus and poor echocardiographic windows, even with definity. ECG Findings * Atrial fibrillation. Left Ventricle * LVEF grossly 60-65%. * Normal LV chamber size, wall thickness and grossly normal systolic function. Not all anaya well visualized. * Indeterminate diastolic function. * Definity echo contrast was used. Right Ventricle * Mildly dilated right ventricle. * Normal right ventricular function. Left Atrium * Normal left atrial size. Right Atrium * Normal right atrial size. Interatrial Septum * Interatrial septum not well evaluated. Aortic Valve * Aortic valve not well visualized. * No aortic stenosis. * No aortic regurgitation. Mitral Valve * No mitral stenosis. * Mitral valve not well visualized. * Trace mitral regurgitation. Tricuspid Valve * Tricuspid valve not well visualized. * Trace tricuspid regurgitation. * No tricuspid stenosis. * Estimated RVSP is RV-RA gradient 31 mmHg. * * Unable to estimate RVSP due to lack of IVC visualization. Pulmonic Valve * Pulmonic valve not well visualized. * No pulmonic stenosis. * Trace pulmonic regurgitation. Aorta * Normally sized aortic root. Pericardium * The pericardium appears normal. IVC * The IVC is not well evaluated. Consult Discharge Plan - Plan Additional Instructions: 1. No heavy lifting greater than 20 pounds x 4 weeks. 2. No tub baths x 2 weeks. 3. May shower. 4. He should follow up in 2 weeks for postoperative check. 5. He should return for any fevers, chills, nausea, vomiting, or significant swelling/ecchymosis. 6. He should hold aspirin and any other blood thinners for 1 week. 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
--- NOTE | 2018-07-28 10:33 | Cardiology Progress Note ---
Addendum entered and electronically signed by Temo Walker MD 07/29/18 15:01: I examined this patient and my medical decision-making was reviewed with the Resident Physician. I agree with the documented findings, disposition and treatment plan as described except to the extent set forth below. A/P: AF Anemia COPD Continue to uptitrate BB/CCB as BP tolerates. Recommend Eliquis as his NOAC. Original Note: Date of Encounter: 07/28/18 Time of Encounter: 10:31 Assessment and Plan (1) Atrial flutter Current Visit: Yes Status: Acute patient is not rate controlled currently anticoagulated with heparin gtt plan: continue cardizim 120 CD. Will give additional dose of metoprolol 12.5mg if patient's rate is still not controlled will titrate up the metoprolol. Will continue with heparin drip until urology is okay with changing to permanent anticoagulation. Patient is approved with both Xeralto and Eliquis. His hgb is 10.0 today (increased from 8.7 likely 2nd to diuresis). Qualifiers: Atrial flutter type: typical Qualified Code(s): I48.3 - Typical atrial flutter (2) Renal mass, left Current Visit: Yes Status: Acute as per urology (3) Anemia following surgery Current Visit: Yes Status: Acute stable continue to monitor (4) COPD (chronic obstructive pulmonary disease) Current Visit: Yes Status: Acute patient being treated for acute exacerbation by primary team. Qualifiers: COPD type: unspecified COPD Qualified Code(s): J44.9 - Chronic obstructive pulmonary disease, unspecified (5) Diabetes Current Visit: Yes Status: Acute Qualifiers: Diabetes mellitus type: type 2 Diabetes mellitus [facility] insulin use: unspecified [facility] insulin use status Diabetes mellitus complication status: with unspecified complications Qualified Code(s): E11.8 - Type 2 diabetes mellitus with unspecified complications Discussion w patient/family: The assessment and plan as outlined above was discussed with the patient and/or family members who expressed understanding and agreement. All questions were answered. Thank you for involving us in the care of your patient. Please call with any questions. Subjective Principal diagnosis: renal mass Interval history: Patient was tachycardic all night with HR ranging from 140s-170s. Patient's resting HR is 100-110s. He denies headache, chest pain, sob. Reports LE edema has improved. He denies melena or hematochezia. Objective Vital Signs, Last 4 Hours Temp Pulse Resp BP Pulse Ox 07/28/18 08:27 96 07/28/18 07:30 97.7 F 150 18 94/62 96 General: Conversant, No Apparent Distress HEENT: Atraumatic, Normocephaly, Mucus Membranes Moist Neck: No JVD, Normal carotid pulses Cardiac: No Murmur, Other (irregularly irregular and tachcyardic) Lungs: Normal Breath Sounds, No Wheeze, Rales, Rhonchi Neuro: Alert and responsive, No focal deficits noted Abdomen: Soft, Non-Tender, Other (distended, incisions intact ) Skin: No rashes noted on visualized skin Musculoskeletal: No Chest Wall Tenderness Extremities: No Clubbing, No Cyanosis, Normal Pulses, Other (1+ edema) Results 07/28/18 02:07 07/27/18 05:06 Lab Results 07/27/18 07/28/18 11:44 02:07 WBC 13.8 H Hgb 10.0 L Hct 29.9 L Plt Count 388 INR 0.9 Consult Discharge Plan - Plan Additional Instructions: 1. No heavy lifting greater than 20 pounds x 4 weeks. 2. No tub baths x 2 weeks. 3. May shower. 4. He should follow up in 2 weeks for postoperative check. 5. He should return for any fevers, chills, nausea, vomiting, or significant swelling/ecchymosis. 6. He should hold aspirin and any other blood thinners for 1 week. Referrals: Vinicio Way MD [Partnered Physician] - (2 weeks for wound check.) NONE,PCP [Primary Care Provider] - Prescriptions: Docusate [Colace] 100 mg PO BID #60 capsule Oxycodone HCl/Acetaminophen [Percocet 5-325 mg Tablet] 1 each PO Q4H PRN 5 Days #20 tablet PRN Reason: Pain
[2018-07-28] MEDS: Tiotropium 18 MCG inhalation IH SCH (15:38)
[2018-07-28] MEDS ORDERED: *HR* Metoprolol 5 MG/5 ML VIAL IVP ONE (17:11)
[2018-07-28] MEDS: rOPINIRole 1 MG TABLET PO SCH (20:35)
[2018-07-29] MEDS: *HR* OxyCODONE Immed Rel 5 MG TABLET PO PRN ×2 (01:22→13:46)
[2018-07-29] MEDS: Levalbuterol Neb 1.25 MG/3 ML IH SCH ×4 (04:11→21:03)
[2018-07-29 05:59] LABS: Basophils % 0.2 %; Eosinophils # 0.1 K/mcL (0.0-0.6); Hematocrit 28.2 % (37.5-50.1); Immature Granulocytes % 1.3 % (0-4); Lymphocytes # 2.2 K/mcL (0.6-4.6); Lymphocytes % 23.3 %; Mean Corpuscular HGB Conc 31.9 g/dL (31.6-35.5); Mean Corpuscular Hemoglobin 30.1 pg (28.0-33.3); Mean Corpuscular Volume 94.3 fL (83.0-100.0); Monocytes # 0.6 K/mcL (0.0-1.3); Monocytes % 6.7 %; Neutrophils # 6.5 K/mcL (1.6-8.9); Platelet Count 357 K/mcL (140-400); Red Blood Count 2.99 M/mcL (4.19-5.50); Red Cell Distribution Width 14.1 % (11.5-14.5); Segmented Neutrophils % 67.5 %
[2018-07-29 06:20] LABS: BUN/Creatinine Ratio 15 (6-26); Blood Urea Nitrogen 20 mg/dL (6-20); Calcium 8.4 mg/dL (8.6-10.3); Carbon Dioxide 38 mEq/L (23-29); Chloride 97 mEq/L (98-107); Glucose 108 mg/dL (70-105); Osmolality,Calculated 289 (280-300); Potassium 3.2 mEq/L (3.5-5.1); Sodium 138 mEq/L (136-145); eGFR For Non-African Americans 54 (> 60)
--- NOTE | 2018-07-29 08:10 | Cardiology Progress Note ---
Addendum entered and electronically signed by Temo Walker MD 07/29/18 15:04: I examined this patient and my medical decision-making was reviewed with the Resident Physician. I agree with the documented findings, disposition and treatment plan as described except to the extent set forth below. A/P: AF Anemia with stable HH Continue rate control and chronic AC with Eliquis. Will sign off. Original Note: Date of Encounter: 07/29/18 Time of Encounter: 09:39 Assessment and Plan (1) Atrial flutter Current Visit: Yes Status: Acute Rate is controlled. irregularly irregular this morning patient's metoprolol dose was increased to 25 BID he was transitoned to Eliquis 5mg BID hgb stable continue cardizem Qualifiers: Atrial flutter type: typical Qualified Code(s): I48.3 - Typical atrial flutter (2) Renal mass, left Current Visit: Yes Status: Acute as per urology (3) Anemia following surgery Current Visit: Yes Status: Acute stable continue to monitor (4) COPD (chronic obstructive pulmonary disease) Current Visit: Yes Status: Acute patient being treated for acute exacerbation by primary team. Qualifiers: COPD type: unspecified COPD Qualified Code(s): J44.9 - Chronic obstructive pulmonary disease, unspecified Discussion w patient/family: The assessment and plan as outlined above was discussed with the patient and/or family members who expressed understanding and agreement. All questions were answered. Thank you for involving us in the care of your patient. Please call with any questions. Subjective Principal diagnosis: renal mass Interval history: no acute events overnight. Patient's HR now between 80-100. He denies chest pain, sob. Reports scrotal swelling and LE edema improved. Denies headache. Objective Vital Signs, Last 4 Hours Temp Pulse Resp BP Pulse Ox 07/29/18 04:19 97.8 F 85 15 116/71 100 07/29/18 04:11 16 98 General: Conversant, No Apparent Distress HEENT: Atraumatic, Normocephaly, Mucus Membranes Moist Neck: No JVD, Normal carotid pulses Cardiac: Normal S1 and S2, No Murmur, Other (irregularly irregular) Lungs: Normal Breath Sounds, No Wheeze, Rales, Rhonchi Neuro: Alert and responsive, No focal deficits noted Abdomen: Soft, Non-Tender Skin: No rashes noted on visualized skin Musculoskeletal: No Chest Wall Tenderness Extremities: No Clubbing, No Cyanosis, Normal Pulses, Other (1+ b/l LE edema, scrotal swelling) Results 07/29/18 05:45 07/29/18 05:45 Lab Results 07/29/18 07/29/18 05:45 05:45 WBC 9.6 Hgb 9.0 L Hct 28.2 L Plt Count 357 Sodium 138 Potassium 3.2 L Chloride 97 L Carbon Dioxide 38 H BUN 20 Creatinine 1.36 H Glucose 108 H Calcium 8.4 L Consult Discharge Plan - Plan Additional Instructions: 1. No heavy lifting greater than 20 pounds x 4 weeks. 2. No tub baths x 2 weeks. 3. May shower. 4. He should follow up in 2 weeks for postoperative check. 5. He should return for any fevers, chills, nausea, vomiting, or significant swelling/ecchymosis. 6. He should hold aspirin and any other blood thinners for 1 week. Referrals: Vinicio Way MD [Partnered Physician] - 08/10/18 3:00 pm (2 weeks for wound check.) NONE,PCP [Primary Care Provider] - Prescriptions: Docusate [Colace] 100 mg PO BID #60 capsule
[2018-07-29] MEDS: Insulin LISPRO 300 UNITS/3 ML VIAL SQ SCH ×3 (08:22→17:42)
--- NOTE | 2018-07-29 08:36 | Urology Progress Note ---
<Bonita Ventura N - Last Filed: 07/29/18 09:03> Date of Encounter: 07/29/18 Time of Encounter: 08:10 - Assessment and Plan (1) Renal mass, left Current Visit: Yes Status: Acute Assessment and plan: Patient is a 57-year-old male who presents 9 days postoperatively from a left robotic-assisted nephrectomy. Patient has been placed on IV vancomycin, and white blood cell count is trending down from 13.5 to 9.6. Vital signs are stable and afebrile. Ok to proceed with permanent anticoagulation from urology standpoint. Progress Note Subjective: no new complaints Narrative: POD #9. Patient seen and examined sitting upright in bed eating breakfast. Patient is tolerating normal diet without nausea or vomiting. Patient is voiding without difficulty. Patient is passing flatus and has had 1 small bowel movement. Patient reports scrotal swelling is improved. Patient denies significant pain, fever, chills, chest pain, dyspnea, calf pain. Objective Initial Vital Signs Temp Pulse Resp BP Pulse Ox 97.8 F 78 18 126/69 91 07/20/18 06:44 07/20/18 06:44 07/20/18 06:44 07/20/18 06:44 07/20/18 06:44 - General physical appearance Present: well developed, no distress, no pain - Respiratory Present: normal expansion, normal respiratory effort - Abdomen Present: soft, non tender, wound (Primary incisions clean dry and intact; left lower quadrant wound dressing clean dry and intact) - Integumentary Present: no rash, no abnormal pigmentation - Musculoskeletal Present: normal posture - Psychiatric Present: oriented to time, oriented to person, oriented to place, speech is normal, memory intact - Labs 07/29/18 05:45 07/29/18 05:45 Diabetes panel 07/29/18 Range/Units 05:45 Sodium 138 (136-145) mEq/L Potassium 3.2 L (3.5-5.1) mEq/L Chloride 97 L (98-107) mEq/L Carbon Dioxide 38 H (23-29) mEq/L BUN 20 (6-20) mg/dL Creatinine 1.36 H (0.70-1.30) mg/dL Glucose 108 H (70-105) mg/dL Calcium 8.4 L (8.6-10.3) mg/dL Calcium panel 07/29/18 Range/Units 05:45 Calcium 8.4 L (8.6-10.3) mg/dL Pituitary panel 07/29/18 Range/Units 05:45 Sodium 138 (136-145) mEq/L Potassium 3.2 L (3.5-5.1) mEq/L Chloride 97 L (98-107) mEq/L Carbon Dioxide 38 H (23-29) mEq/L BUN 20 (6-20) mg/dL Creatinine 1.36 H (0.70-1.30) mg/dL Glucose 108 H (70-105) mg/dL Calcium 8.4 L (8.6-10.3) mg/dL Adrenal panel 07/29/18 Range/Units 05:45 Sodium 138 (136-145) mEq/L Potassium 3.2 L (3.5-5.1) mEq/L Chloride 97 L (98-107) mEq/L Carbon Dioxide 38 H (23-29) mEq/L BUN 20 (6-20) mg/dL Creatinine 1.36 H (0.70-1.30) mg/dL Glucose 108 H (70-105) mg/dL Calcium 8.4 L (8.6-10.3) mg/dL Consult Discharge Plan - Plan Additional Instructions: 1. No heavy lifting greater than 20 pounds x 4 weeks. 2. No tub baths x 2 weeks. 3. May shower. 4. He should follow up in 2 weeks for postoperative check. 5. He should return for any fevers, chills, nausea, vomiting, or significant swelling/ecchymosis. 6. He should hold aspirin and any other blood thinners for 1 week. Referrals: Vinicio Way MD [Partnered Physician] - 08/10/18 3:00 pm (2 weeks for wound check.) NONE,PCP [Primary Care Provider] - Prescriptions: Docusate [Colace] 100 mg PO BID #60 capsule <Vinicio Way - Last Filed: 07/29/18 10:21> Date of Encounter: 07/29/18 - Assessment and Plan (1) Renal mass, left Current Visit: Yes Status: Acute (2) Anemia following surgery Current Visit: Yes Status: Acute Assessment and plan: H&H is stable with anticoagulation. Okay to proceed with oral anticoagulants. (3) Atrial fibrillation Current Visit: Yes Status: Deleted Qualifiers: Atrial fibrillation type: unspecified Qualified Code(s): I48.91 - Unspecified atrial fibrillation (4) Cellulitis Current Visit: Yes Status: Acute Assessment and plan: Continue vancomycin. Cellulitis improving. CT scan was reviewed from yesterday. I don't see any evidence of wound infection. 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 Qualifiers: Site of cellulitis of trunk: abdominal wall Qualified Code(s): L03.311 - Cellulitis of abdominal wall Objective Initial Vital Signs Temp Pulse Resp BP Pulse Ox 97.8 F 78 18 126/69 91 07/20/18 06:44 07/20/18 06:44 07/20/18 06:44 07/20/18 06:44 07/20/18 06:44 - Labs 07/29/18 05:45 07/29/18 05:45 Diabetes panel 07/29/18 Range/Units 05:45 Sodium 138 (136-145) mEq/L Potassium 3.2 L (3.5-5.1) mEq/L Chloride 97 L (98-107) mEq/L Carbon Dioxide 38 H (23-29) mEq/L BUN 20 (6-20) mg/dL Creatinine 1.36 H (0.70-1.30) mg/dL Glucose 108 H (70-105) mg/dL Calcium 8.4 L (8.6-10.3) mg/dL Calcium panel 07/29/18 Range/Units 05:45 Calcium 8.4 L (8.6-10.3) mg/dL Pituitary panel 07/29/18 Range/Units 05:45 Sodium 138 (136-145) mEq/L Potassium 3.2 L (3.5-5.1) mEq/L Chloride 97 L (98-107) mEq/L Carbon Dioxide 38 H (23-29) mEq/L BUN 20 (6-20) mg/dL Creatinine 1.36 H (0.70-1.30) mg/dL Glucose 108 H (70-105) mg/dL Calcium 8.4 L (8.6-10.3) mg/dL Adrenal panel 07/29/18 Range/Units 05:45 Sodium 138 (136-145) mEq/L Potassium 3.2 L (3.5-5.1) mEq/L Chloride 97 L (98-107) mEq/L Carbon Dioxide 38 H (23-29) mEq/L BUN 20 (6-20) mg/dL Creatinine 1.36 H (0.70-1.30) mg/dL Glucose 108 H (70-105) mg/dL Calcium 8.4 L (8.6-10.3) mg/dL
[2018-07-29] MEDS: Loratadine 10 MG TABLET PO SCH (08:38)
[2018-07-29] MEDS: predniSONE 20 MG TABLET PO SCH (08:38)
[2018-07-29] MEDS: Diltiazem CD (24hr) 120 MG CAPSULE PO SCH (08:38)
[2018-07-29] MEDS: Apixaban 5 MG TABLET PO SCH ×3 (08:38→20:58)
[2018-07-29] MEDS: Furosemide 40 MG TABLET PO SCH ×2 (08:40→17:41)
--- NOTE | 2018-07-29 10:29 | Internal Med Progress Note ---
Hospitalist Progress Note - Encounter Date of Encounter: 07/29/18 Time of Encounter: 10:27 - Subjective Interval History: 57 M admitted to Urology service , POD 9 s/p L nephrectomy for renal mass Incidental finding of Afib with RVR in-patient Also CHFpEF HR better controlled Blood cultures requested 07/28 Patient is requesting to be ambulated, and also complained of scrotal pain, even though he believes the swelling is improved Urology is following actively Recommend discontinuation of vanco , change to po Augmentin if blood cultures are negative after 48 hrs, leukocytosis is improving Order placed for ambulate prn, Hr is better controlled and patient is on NOAC - Exam Vitals: Temp Pulse Resp BP Pulse Ox 97.8 F 85 15 116/71 100 07/29/18 04:19 07/29/18 04:19 07/29/18 04:19 07/29/18 04:19 07/29/18 04:19 Exam: Gen - Awake, alert, oriented x 3, no acute distress, morbidly obese HEENT - NCAT, PERRLA, EOMI, hearing grossly intact, oropharynx benign Heart -S1, S2, tachy, irregularly irregular, no m/g/r Resp - CTAB, diminished at the bases, likley due to body habitus GI - Soft, distended, hyperpigmented, blanching , dressing on LLQ soaked, BS present in all quadrants Back: NO CVA tenderness Skin - Warm, dry, no rashes/lesions/ulcers Psych -Appropriate affect : Grossly edematous scrotum,tender+, no evidence of gangrene Extremities: Trace bilateral pitting pedal edema - Assessment and Plan (1) Renal mass, left Current Visit: Yes Status: Acute Assessment and Plan: POD 8 & s/p left nehprectomy. Pathology shows clear cell renal carcinoma. 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 Scrotum examined again, shows no gangrene Urology is following (2) Anemia following surgery Current Visit: Yes Status: Acute Assessment and Plan: Stable (3) COPD (chronic obstructive pulmonary disease) Current Visit: Yes Status: Acute Assessment and Plan: Nebs and steroids PRN Discontinue steroids after 5 days (4) Diabetes Current Visit: Yes Status: Chronic Assessment and Plan: Continue on sliding scale insulin, FS ACHS (5) Atrial flutter Current Visit: Yes Status: Acute Assessment and Plan: Pt had atrial flutter , new diagnosis HR now controlled on Cardizem, metoprolol Continue same, continue eliquis, cardio following, ECHO noted (6) Heart failure with preserved ejection fraction Current Visit: Yes Status: Acute Assessment and Plan: On BID lasix. Switch to po Monitor ins and outs Echo showed preserved EF with dilated right ventricle (7) Chronic respiratory failure with hypoxia Current Visit: Yes Status: Chronic Assessment and Plan: continue O2, patient states has at home DVT Prophylaxis: eliquis po - Time Spent with Patient Total time spent is greater than 50% in coordination of care (as documented) at patient's floor/unit and/or counseling patient: Internal Medicine: Result - Labs CBC & Chem 7: 07/29/18 05:45 07/29/18 05:45 Labs: Short CBC 07/29/18 Range/Units 05:45 WBC 9.6 (4.3-11.1) K/mcL Hgb 9.0 L (12.9-16.9) g/dL Hct 28.2 L (37.5-50.1) % Plt Count 357 (140-400) K/mcL Neutrophils # 6.5 (1.6-8.9) K/mcL BMP 07/29/18 05:45 Sodium 138 Potassium 3.2 L Chloride 97 L Carbon Dioxide 38 H BUN 20 Creatinine 1.36 H Glucose 108 H Calcium 8.4 L - ABG Interpretation ABG results: ABG ABG pH 7.27 pH Units (7.32-7.45) L 07/20/18 12:47 ABG pCO2 59 mmHg (35-45) H 07/20/18 12:47 ABG pO2 141 mmHg (85-104) H 07/20/18 12:47 ABG O2 Saturation 99 % (95-98) H 07/20/18 12:47 PT/INR, D-dimer PT 10.3 Seconds (9.4-12.1) 07/27/18 11:44 Consult Discharge Plan - Plan Additional Instructions: 1. No heavy lifting greater than 20 pounds x 4 weeks. 2. No tub baths x 2 weeks. 3. May shower. 4. He should follow up in 2 weeks for postoperative check. 5. He should return for any fevers, chills, nausea, vomiting, or significant swelling/ecchymosis. 6. He should hold aspirin and any other blood thinners for 1 week. 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
[2018-07-29] MEDS: Tiotropium 18 MCG inhalation IH SCH (10:44)
--- NOTE | 2018-07-29 14:25 | Electrocardiograph Report ---
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
[2018-07-29] MEDS: Heparin 25,000 UNIT/500 ML D5W 25,000 UNIT/500 ML BAG IVC SCH ×2 (19:56→19:57)
[2018-07-29] MEDS: Furosemide 40 MG/4 ML VIAL IVP SCH (19:58)
[2018-07-29] MEDS ORDERED: Vancomycin 1 EACH in 0.9 % Sodium Chloride 500 ML IVPB SCH (20:15)
[2018-07-29] MEDS: rOPINIRole 1 MG TABLET PO SCH (20:59)
[2018-07-30] MEDS: *HR* OxyCODONE Immed Rel 5 MG TABLET PO PRN ×2 (03:38→12:36)
[2018-07-30] MEDS: Levalbuterol Neb 1.25 MG/3 ML IH SCH ×4 (04:28→21:01)
[2018-07-30 05:08] LABS: Basophils % 0.1 %; Eosinophils % 0.5 %; Hemoglobin 8.9 g/dL (12.9-16.9); Immature Granulocytes % 1.6 % (0-4); Lymphocytes # 1.5 K/mcL (0.6-4.6); Lymphocytes % 17.8 %; Mean Corpuscular HGB Conc 31.8 g/dL (31.6-35.5); Mean Corpuscular Volume 94.3 fL (83.0-100.0); Mean Platelet Volume 10.3 fL (9.4-12.4); Monocytes # 0.6 K/mcL (0.0-1.3); Monocytes % 7.3 %; Neutrophils # 6.3 K/mcL (1.6-8.9); Platelet Count 377 K/mcL (140-400); Red Blood Count 2.97 M/mcL (4.19-5.50); Red Cell Distribution Width 14.2 % (11.5-14.5); Segmented Neutrophils % 72.7 %
[2018-07-30 05:25] LABS: BUN/Creatinine Ratio 16 (6-26); Blood Urea Nitrogen 20 mg/dL (6-20); Calcium 8.6 mg/dL (8.6-10.3); Carbon Dioxide 36 mEq/L (23-29); Chloride 98 mEq/L (98-107); Glucose 99 mg/dL (70-105); Osmolality,Calculated 293 (280-300); Potassium 3.5 mEq/L (3.5-5.1); Sodium 140 mEq/L (136-145); Vancomycin,Random 17 mcg/mL; eGFR For Non-African Americans 58 (> 60)
[2018-07-30] MEDS ORDERED: Aminoglycoside Consult 1 EACH MC ONE (08:03)
--- NOTE | 2018-07-30 08:32 | Urology Progress Note ---
Addendum entered and electronically signed by Vinicio Way MD 07/30/18 13:41: The patient was seen and examined with the physician's customer marketing assistant. I agree with the assessment and plan. We will anticipate discharge home tomorrow once coordinated with rehabilitation. Appreciate IM support. We will continue to follow the cellulitis closely. Original Note: Date of Encounter: 07/30/18 Time of Encounter: 07:55 - Assessment and Plan (1) Renal mass, left Current Visit: Yes Status: Acute Assessment and plan: Patient is a 57-year-old male who is 10 days status post left robotic-assisted nephrectomy. Patient is feeling much better and has no concerns. Patient has been transitioned from IV vancomycin to oral Augmentin. Patient has also been transitioned to oral Eliquis from heparin drip. Discussed discharge to rehabilitation facility if both cardiology and primary team agree. I spoke with Rufina Mansfield, [employer], who is awaiting PT/OT evaluation today in order to send updates to rehab facility. Rufina is working on precertification for patient's stay at the [facility]. Rufina states precertification will likely be approved in 24 hours. We will plan outpatient follow-up in [address] at [facility]. Progress Note Subjective: no new complaints, feels better Narrative: POD #10. Patient seen and examined sitting upright in chair in no apparent distress. Patient is tolerating normal diet without nausea or vomiting. Patient is voiding without difficulty. Patient states he had a regular BM this morning. Patient denies fever, chills, chest pain, dyspnea, calf pain. Objective Initial Vital Signs Temp Pulse Resp BP Pulse Ox 97.8 F 78 18 126/69 91 07/20/18 06:44 07/20/18 06:44 07/20/18 06:44 07/20/18 06:44 07/20/18 06:44 - General physical appearance Present: well developed, no distress, obese - Respiratory Present: normal expansion, normal respiratory effort - Abdomen Present: soft, non tender, wound (Primary incisions clean dry and intact; Left lower quadrant wound dressing clean dry and intact with some surrounding erythema ) - Genitourinary Present: testicles present (resolving edema bilaterally ) - Integumentary Present: no rash, no abnormal pigmentation - Musculoskeletal Present: normal posture - Psychiatric Present: oriented to time, oriented to person, oriented to place, speech is normal, memory intact - Labs 07/30/18 04:08 07/30/18 04:08 Diabetes panel 07/30/18 Range/Units 04:08 Sodium 140 (136-145) mEq/L Potassium 3.5 (3.5-5.1) mEq/L Chloride 98 (98-107) mEq/L Carbon Dioxide 36 H (23-29) mEq/L BUN 20 (6-20) mg/dL Creatinine 1.29 (0.70-1.30) mg/dL Glucose 99 (70-105) mg/dL Calcium 8.6 (8.6-10.3) mg/dL Calcium panel 07/30/18 Range/Units 04:08 Calcium 8.6 (8.6-10.3) mg/dL Pituitary panel 07/30/18 Range/Units 04:08 Sodium 140 (136-145) mEq/L Potassium 3.5 (3.5-5.1) mEq/L Chloride 98 (98-107) mEq/L Carbon Dioxide 36 H (23-29) mEq/L BUN 20 (6-20) mg/dL Creatinine 1.29 (0.70-1.30) mg/dL Glucose 99 (70-105) mg/dL Calcium 8.6 (8.6-10.3) mg/dL Adrenal panel 07/30/18 Range/Units 04:08 Sodium 140 (136-145) mEq/L Potassium 3.5 (3.5-5.1) mEq/L Chloride 98 (98-107) mEq/L Carbon Dioxide 36 H (23-29) mEq/L BUN 20 (6-20) mg/dL Creatinine 1.29 (0.70-1.30) mg/dL Glucose 99 (70-105) mg/dL Calcium 8.6 (8.6-10.3) mg/dL Consult Discharge Plan - Plan Additional Instructions: 1. No heavy lifting greater than 20 pounds x 4 weeks. 2. No tub baths x 2 weeks. 3. May shower. 4. He should follow up in 2 weeks for postoperative check. 5. He should return for any fevers, chills, nausea, vomiting, or significant swelling/ecchymosis. 6. He should hold aspirin and any other blood thinners for 1 week. Referrals: Vinicio Way MD [Partnered Physician] - 08/10/18 3:00 pm (2 weeks for wound check.) NONE,PCP [Primary Care Provider] - Prescriptions: Docusate [Colace] 100 mg PO BID #60 capsule
[2018-07-30] MEDS: Loratadine 10 MG TABLET PO SCH (08:38)
[2018-07-30] MEDS: Diltiazem CD (24hr) 120 MG CAPSULE PO SCH (08:38)
[2018-07-30] MEDS: Apixaban 5 MG TABLET PO SCH ×2 (08:39→21:05)
[2018-07-30] MEDS: Furosemide 40 MG TABLET PO SCH ×2 (08:39→19:52)
[2018-07-30] MEDS: predniSONE 20 MG TABLET PO SCH (08:39)
[2018-07-30] MEDS: Insulin LISPRO 300 UNITS/3 ML VIAL SQ SCH ×3 (08:40→16:25)
--- NOTE | 2018-07-30 09:40 | Internal Med Progress Note ---
Hospitalist Progress Note - Encounter Date of Encounter: 07/30/18 Time of Encounter: 09:37 - Subjective Interval History: 57 M admitted to Urology service , POD 9 s/p L nephrectomy for renal mass Primarily admitted by urology Medicine was consulted for Afib with RVR,CHF and DM management HR better controlled, on NOACS, BP WNL, Edema improved Recommendation by medicine: *Afib/CHFpEF: Continue current cardiac meds viz: Cardizem, Metoprolol, Lasix *Suspected cellulitis: Continue antibiotics per primary team, changed to Augmentin po this am, aim for total 10 days of therapy : No blood cultures were drawn, patient is not septic * DM: Continue sliding scale inpatient, Patient may resume Metformin when discharged *COPD: Continue duonebs, to complete 5 days of steroids (last day 07/31), resume patient's inhalers, O2 and CPAP upon discharge *Obesity: Lifestyle modification with dietary changes and weight loss management of renal mass and scrotal swelling per urology, primary team Hospital medicine will sign off on this patient, than you for involving us in the care of Mr. Lr, You may reconsult/call prn. - Exam Vitals: Temp Pulse Resp BP Pulse Ox 97.4 F L 83 20 95/65 98 07/30/18 06:50 07/30/18 06:50 07/30/18 06:50 07/30/18 06:50 07/30/18 06:50 Exam: Gen - Awake, alert, oriented x 3, no acute distress, morbidly obese HEENT - NCAT, PERRLA, EOMI, hearing grossly intact, oropharynx benign Heart -S1, S2, tachy, irregularly irregular, no m/g/r Resp - CTAB, diminished at the bases, likley due to body habitus GI - Soft, distended, hyperpigmented, blanching , dressing on LLQ soaked, BS present in all quadrants Back: NO CVA tenderness Skin - Warm, dry, no rashes/lesions/ulcers Psych -Appropriate affect : Grossly edematous scrotum,tender+, no evidence of gangrene Extremities: Trace bilateral pitting pedal edema - Assessment and Plan (1) Renal mass, left Current Visit: Yes Status: Acute (2) Anemia following surgery Current Visit: Yes Status: Acute (3) COPD (chronic obstructive pulmonary disease) Current Visit: Yes Status: Acute (4) Diabetes Current Visit: Yes Status: Chronic (5) Atrial flutter Current Visit: Yes Status: Acute (6) Heart failure with preserved ejection fraction Current Visit: Yes Status: Acute (7) Chronic respiratory failure with hypoxia Current Visit: Yes Status: Chronic DVT Prophylaxis: eliquis po - Time Spent with Patient Total time spent is greater than 50% in coordination of care (as documented) at patient's floor/unit and/or counseling patient: Plan of Care Discussed with: patient Internal Medicine: Result - Labs CBC & Chem 7: 07/30/18 04:08 07/30/18 04:08 Labs: Short CBC 07/30/18 Range/Units 04:08 WBC 8.6 (4.3-11.1) K/mcL Hgb 8.9 L (12.9-16.9) g/dL Hct 28.0 L (37.5-50.1) % Plt Count 377 (140-400) K/mcL Neutrophils # 6.3 (1.6-8.9) K/mcL BMP 07/30/18 04:08 Sodium 140 Potassium 3.5 Chloride 98 Carbon Dioxide 36 H BUN 20 Creatinine 1.29 Glucose 99 Calcium 8.6 - ABG Interpretation ABG results: ABG ABG pH 7.27 pH Units (7.32-7.45) L 07/20/18 12:47 ABG pCO2 59 mmHg (35-45) H 07/20/18 12:47 ABG pO2 141 mmHg (85-104) H 07/20/18 12:47 ABG O2 Saturation 99 % (95-98) H 07/20/18 12:47 PT/INR, D-dimer PT 10.3 Seconds (9.4-12.1) 07/27/18 11:44 Consult Discharge Plan - Plan Additional Instructions: 1. No heavy lifting greater than 20 pounds x 4 weeks. 2. No tub baths x 2 weeks. 3. May shower. 4. He should follow up in 2 weeks for postoperative check. 5. He should return for any fevers, chills, nausea, vomiting, or significant swelling/ecchymosis. 6. He should hold aspirin and any other blood thinners for 1 week. Referrals: Vinicio Way MD [Partnered Physician] - 08/10/18 3:00 pm (2 weeks for wound check.) NONE,PCP [Primary Care Provider] - Prescriptions: Docusate [Colace] 100 mg PO BID #60 capsule (3) COPD (chronic obstructive pulmonary disease) Qualifiers: COPD type: unspecified COPD Qualified Code(s): J44.9 - Chronic obstructive pulmonary disease, unspecified (4) Diabetes Qualifiers: Diabetes mellitus type: type 2 Diabetes mellitus predatory animal exterminator insulin use: unspecified predatory animal exterminator insulin use status Diabetes mellitus complication status: with unspecified complications Qualified Code(s): E11.8 - Type 2 diabetes mellitus with unspecified complications (5) Atrial flutter Qualifiers: Atrial flutter type: typical Qualified Code(s): I48.3 - Typical atrial flutter
[2018-07-30] MEDS: Tiotropium 18 MCG inhalation IH SCH (10:52)
[2018-07-30] MEDS: rOPINIRole 1 MG TABLET PO SCH (21:05)
[2018-07-31] MEDS: Acetaminophen 325 MG TABLET PO PRN (02:56)
[2018-07-31] MEDS: Levalbuterol Neb 1.25 MG/3 ML IH SCH ×4 (04:07→21:05)
[2018-07-31] MEDS: *HR* OxyCODONE Immed Rel 5 MG TABLET PO PRN ×2 (05:50→16:40)
[2018-07-31] MEDS: Insulin LISPRO 300 UNITS/3 ML VIAL SQ SCH ×3 (07:11→16:41)
--- NOTE | 2018-07-31 08:06 | Discharge Summary ---
Addendum entered and electronically signed by Vinicio Way MD 08/03/18 13:26: I will add on MiraLAX 17 g by mouth in 8 ounces daily as needed for constipation. Addendum entered and electronically signed by FRED Barrera 08/03/18 13:06: Patient seen and examined today. Insurance approval for ECF has been obtained today. Patient planning transfer to rehabilitation center this afternoon. All discharge medications previously written, except narcotic, are unaccounted for and will be rewritten for discharge. Addendum entered and electronically signed by Vinicio Way MD 07/31/18 11:57: Patient seen and examined with the PA. Agree with assessment and plan. Patient seen and examined at the time of the discharge. Original Note: <Bonita Ventura - Last Filed: 07/31/18 08:03> Date of Encounter: 07/31/18 Time of Encounter: 08:08 - Discharge Diagnosis (1) Renal mass, left Priority: Primary Status: Acute (2) Anemia following surgery Priority: Secondary Status: Acute (3) Atrial flutter Priority: Secondary Status: Acute Qualifiers: Atrial flutter type: typical Qualified Code(s): I48.3 - Typical atrial flutter (4) COPD (chronic obstructive pulmonary disease) Priority: Secondary Status: Acute Qualifiers: COPD type: unspecified COPD Qualified Code(s): J44.9 - Chronic obstructive pulmonary disease, unspecified (5) Cellulitis Priority: Primary Status: Acute Qualifiers: Site of cellulitis of trunk: abdominal wall Qualified Code(s): L03.311 - Cellulitis of abdominal wall (6) Diabetes Priority: Secondary Status: Chronic Qualifiers: Diabetes mellitus type: type 2 Diabetes mellitus fdc insulin use: unspecified fdc insulin use status Diabetes mellitus complication status: with unspecified complications Qualified Code(s): E11.8 - Type 2 diabetes mellitus with unspecified complications - Hospital Course Hospital course: Mr. Lr is a 57 year old male who presents with a left renal mass. On 07/20/2018, the patient was taken to the operating where he underwent a left robotic nephrectomy. Surgical time was extended secondary to intraoperative bleeding and extraction difficulty due to the size of the left kidney. The patient was transfused intraoperatively, and tolerated the procedure well. Inte rnal medicine was consulted in order to manage patient's comorbidities during admission. On postoperative day 4, patient developed cellulitis surrounding left lower quadrant wound. Dr. Way was able to partially open the left lower quadrant extraction site and apply wound packing. A CT scan of the pelvis was performed and showed postoperative changes but no localized deep abscess. On postoperative day 6, the patient was found to have an asymptomatic atrial flutter with uncontrolled rate. Cardiology was consulted and placed the patient on Cardizem drip as well as a heparin drip. Postoperative anemia became stabilized, and patient was transitioned to oral Eliquis. Patient will be transferred to outpatient rehabilitation facility with standing orders. Patient is being dismissed in satisfactory condition. Postoperative expectations, restrictions, activity and follow-up were discussed with patient, and patient verbalized understanding. Time spent discussing smoking cessation with patient: 3 to 10 minutes - Time Spent with Patient Total time spent providing and/or coordinating discharge services: Less than 30 minutes Procedures and tests throughout hospitalization: Left robotic nephrectomy Labs on day of discharge: Labs from last 24 hours 07/30/18 07/30/18 07/30/18 20:18 15:57 11:06 POC Glucose 159 H 190 H 122 H 07/30/18 07/29/18 06:55 11:19 POC Glucose 98 133 H - Impressions ITS Impressions Abdomen/Pelvis CT 07/22/18 08:05 IMPRESSION: Patient is status post left nephrectomy. Small to moderate amount of fluid and hemorrhagic material within the left retroperitoneum likely relating to the recent surgical intervention without organized appearance for hematoma. There also a small amount of intraperitoneal free hemorrhagic material. Small amount of intraperitoneal and left retroperitoneal free air likely relating to the recent surgical intervention as well. Postsurgical change with fat stranding and foci of gas in the subcutaneous fat and anterior abdominal wall likely relating to the recent surgical intervention as well with extension of gas into the scrotal region. No focal fluid collection noted. Critical results were called by Dr. Arvin Jolley MD to Usha Rooney, nurse caring for the patient, on 07/22/2018 at 10:24. D/ / 07/22/2018 10:28:57 Arvin Jolley MD / prudencio Interpreting Provider: Arvin Jolley MD Chest X-Ray 07/26/18 11:06 IMPRESSION: No acute process. D/ / Raffi Mcneill MD / Raffi Mcneill MD Interpreting Provider: Raffi Mcneill MD Echocardiogram 07/27/18 10:14 Impressions: Technically sub-optimal due to body habitus and poor echocardiographic windows. LVEF grossly 60-65%. Grossly normal LV chamber size, wall thickness and grossly normal systolic function. Indeterminate diastolic function. Mildly dilated right ventricle with normal right ventricular function. No significant valvular dysfunction. Unable to estimate RVSP due to lack of IVC visualization. Left Ventricular Wall Motion: Rest Echo Findings The mid anterior septal and basal anterior septal anaya were not visualized. All other wall segments showed normal motion. Findings: Study Quality * Technically sub-optimal due to body habitus and poor echocardiographic windows, even with definity. ECG Findings * Atrial fibrillation. Left Ventricle * LVEF grossly 60-65%. * Normal LV chamber size, wall thickness and grossly normal systolic function. Not all anaya well visualized. * Indeterminate diastolic function. * Definity echo contrast was used. Right Ventricle * Mildly dilated right ventricle. * Normal right ventricular function. Left Atrium * Normal left atrial size. Right Atrium * Normal right atrial size. Interatrial Septum * Interatrial septum not well evaluated. Aortic Valve * Aortic valve not well visualized. * No aortic stenosis. * No aortic regurgitation. Mitral Valve * No mitral stenosis. * Mitral valve not well visualized. * Trace mitral regurgitation. Tricuspid Valve * Tricuspid valve not well visualized. * Trace tricuspid regurgitation. * No tricuspid stenosis. * Estimated RVSP is RV-RA gradient 31 mmHg. * * Unable to estimate RVSP due to lack of IVC visualization. Pulmonic Valve * Pulmonic valve not well visualized. * No pulmonic stenosis. * Trace pulmonic regurgitation. Aorta * Normally sized aortic root. Pericardium * The pericardium appears normal. IVC * The IVC is not well evaluated. Abdomen/Pelvis CT 07/28/18 09:30 IMPRESSION: Increased inflammatory changes in the lower abdominal and scrotal soft tissues and significantly increased fluid within the scrotum. Persistent gas within the scrotal soft tissues and bilateral inguinal soft tissues. Findings could represent cellulitis with postsurgical gas, though necrotizing fasciitis/Kingsley gangrene remains a possibility given interval worsening. Postsurgical changes of left nephrectomy with decreased fluid in the surgical bed. D/ / Puneet De La Cruz MD / Puneet De La Cruz MD Interpreting Provider: Puneet De La Cruz MD - Discharge Medications Prescriptions: Amoxicillin/Clavulanate [Augmentin] 875 mg PO BIDWM #20 tablet Apixaban [Eliquis] 5 mg PO BID #60 tablet Diltiazem CD (24hr) [Cardizem CD] 120 mg PO DAILY #30 cap.er.24h Docusate [Colace] 100 mg PO BID #60 capsule Furosemide [Lasix] 40 mg PO BID #60 tablet Home Medications: RX: Aclidinium [place] [Tudorza Pressair] 1 puff IH BID 07/20/18 [History] RX: Albuterol Sulfate [Ventolin Hfa] 2 puff IH Q4-6H PRN 07/20/18 [History] RX: Aspirin [Lo-Dose Aspirin EC] 81 mg PO DAILY 07/20/18 [History] RX: Atorvastatin [Lipitor] 40 mg PO HS 07/20/18 [History] RX: Fluticasone Propionate Nasal [Flonase] 1 spr NS DAILY PRN 07/20/18 [History] RX: Ipratropium/Albuterol Neb [Duoneb] 3 ml IH Q6HR 07/20/18 [History] RX: Lansoprazole [Prevacid] 15 mg PO DAILY 07/20/18 [History] RX: Loratadine [Claritin] 10 mg PO DAILY 07/20/18 [History] RX: Metformin HCl [Metformin HCl ER] 500 mg PO BID 07/20/18 [History] RX: rOPINIRole [Requip] 2 mg PO HS 07/20/18 [History] Docusate [Colace] 100 mg PO BID #60 capsule 07/24/18 [Rx] Amoxicillin/Clavulanate [Augmentin] 875 mg PO BIDWM #20 tablet 07/31/18 [Rx] Apixaban [Eliquis] 5 mg PO BID #60 tablet 07/31/18 [Rx] Diltiazem CD (24hr) [Cardizem CD] 120 mg PO DAILY #30 cap.er.24h 07/31/18 [Rx] Furosemide [Lasix] 40 mg PO BID #60 tablet 07/31/18 [Rx] RX: Metoprolol [Lopressor] 25 mg PO BID tablet 07/31/18 [Rx] Allergies/Adverse Reactions: Allergy/AdvReac Type Severity Reaction Status Date / Time No Known Allergies Allergy Verified 07/20/18 07:24 Date of admission: 07/20/18 17:39 Primary care physician: PCP NONE Consults: 07/21/18 09:15 Consult to Occupational Therapy [CONS] Routine Comment: Evaluate, develop and implement POC Reason for Consult: postoperative ambulation assistance Does patient have active BEDREST order?: No Is patient medically & hemodynamically stable?: Yes Patient assessed for mobility or mobilized this visit?: No Consult to Physical Therapy [CONS] Routine Comment: Evaluate, develop and implement POC Reason for Consult: encourage postoperative ambulation Does patient have active BEDREST order?: No Is patient medically & hemodynamically stable?: Yes Patient assessed for mobility or mobilized this visit?: No 07/23/18 07:37 Consult to Business Control Manager [CONS] Routine Reason for SW Consult: discharge planning to rehab 07/26/18 06:42 Consult to Hospitalist [CONS] Routine Consulting Provider: Lorin Joy Reason for Consult: Afib RVR Call Completed: Yes 07/28/18 08:35 Consult to Invasive Line Access Team [CONS] Routine Reason for Consult: Picc Line Insertion Line Type: PICC PICC line indications: Limited vascular access Time Notified: 08:35 Call Completed: No 07/28/18 09:43 Consult to Invasive Line Access Team [CONS] Routine Reason for Consult: Need more IV access Line Type: EPIV PICC line indications: Limited vascular access Time Notified: 08:30 Discharging clinician: Bonita Ventura Anticipated date of discharge: 07/31/18 Exam Initial Vital Signs Temp Pulse Resp BP Pulse Ox 97.8 F 78 18 126/69 91 07/20/18 06:44 07/20/18 06:44 07/20/18 06:44 07/20/18 06:44 07/20/18 06:44 - General physical appearance Present: well developed, no distress, no pain - Eyes Present: PERRL, normal ocular movement - ENT Present: normal nares, no hearing loss, no congestion - Neck Present: no masses, trachea midline - Respiratory Present: normal respiratory effort - Cardiovascular Cardiovascular exam IM: RRR - Abdomen Abdomen: Present: soft, non tender, wound (primary incisions clean, dry, intact ) - Integumentary Present: no rash, no abnormal pigmentation - Neurologic Present: normal coordination - Musculoskeletal Present: other (normal posture ) - Patient Status Disposition: Transfer Inpatient Rehab Fac Condition: Good Functional capacity at discharge: independent ambulation Overall status at discharge: patient is progressing back to baseline - Discharge Instructions Follow Up With: Vinicio Way MD [Partnered Physician] - 08/10/18 3:00 pm (2 weeks for wound check.) NONE,PCP [Primary Care Provider] - Temo Walker MD [Partnered Physician] - Additional Instructions: 1. No heavy lifting greater than 20 pounds x 4 weeks. 2. No tub baths x 2 weeks. 3. May shower. 4. He should follow up in 2 weeks for postoperative check. 5. He should return for any fevers, chills, nausea, vomiting, or significant swelling/ecchymosis. 6. Please follow up with Cardiology within 1-2 weeks of discharge. 7. Please follow up with Primary Care within 1-2 weeks of discharge. 8. Continue with dressing and packing changes twice daily. 9. Do not drive as long as you are taking narcotic pain medication. 10. Continue DuoNeb, resume inhalers, o2, and CPAP. 11. May resume Metformin and sliding scale insulin. - Diet and Activity Activity: increase activity as tolerated Diet: diabetic diet <Vinicio Way - Last Filed: 07/31/18 11:55> Date of Encounter: 07/31/18 - Discharge Diagnosis (1) Renal mass, left Status: Acute (2) Anemia following surgery Status: Acute (3) Atrial fibrillation Status: Deleted Qualifiers: Atrial fibrillation type: unspecified Qualified Code(s): I48.91 - Unspecified atrial fibrillation (4) Cellulitis Status: Acute Qualifiers: Site of cellulitis of trunk: abdominal wall Qualified Code(s): L03.311 - Cellulitis of abdominal wall (5) Renal malignant neoplasm Priority: Primary Status: Acute Qualifiers: Laterality: left Qualified Code(s): C64.2 - Malignant neoplasm of left kidney, except renal pelvis - Hospital Course Hospital course: Mr. Lr is a 57 year old male - Time Spent with Patient Total time spent providing and/or coordinating discharge services: Labs on day of discharge: Labs from last 24 hours 07/30/18 07/30/18 07/30/18 20:18 15:57 11:06 POC Glucose 159 H 190 H 122 H 07/30/18 07/29/18 06:55 11:19 POC Glucose 98 133 H - Impressions ITS Impressions Abdomen/Pelvis CT 07/22/18 08:05 IMPRESSION: Patient is status post left nephrectomy. Small to moderate amount of fluid and hemorrhagic material within the left retroperitoneum likely relating to the recent surgical intervention without organized appearance for hematoma. There also a small amount of intraperitoneal free hemorrhagic material. Small amount of intraperitoneal and left retroperitoneal free air likely relating to the recent surgical intervention as well. Postsurgical change with fat stranding and foci of gas in the subcutaneous fat and anterior abdominal wall likely relating to the recent surgical intervention as well with extension of gas into the scrotal region. No focal fluid collection noted. Critical results were called by Dr. Arvin Jolley MD to Usha Rooney, nurse caring for the patient, on 07/22/2018 at 10:24. D/ / 07/22/2018 10:28:57 Arvin Jolley MD / prudencio Interpreting Provider: Arvin Jolley MD Chest X-Ray 07/26/18 11:06 IMPRESSION: No acute process. D/ / Raffi Mcneill MD / Raffi Mcneill MD Interpreting Provider: Raffi Mcneill MD Echocardiogram 07/27/18 10:14 Impressions: Technically sub-optimal due to body habitus and poor echocardiographic windows. LVEF grossly 60-65%. Grossly normal LV chamber size, wall thickness and grossly normal systolic function. Indeterminate diastolic function. Mildly dilated right ventricle with normal right ventricular function. No significant valvular dysfunction. Unable to estimate RVSP due to lack of IVC visualization. Left Ventricular Wall Motion: Rest Echo Findings The mid anterior septal and basal anterior septal anaya were not visualized. All other wall segments showed normal motion. Findings: Study Quality * Technically sub-optimal due to body habitus and poor echocardiographic windows, even with definity. ECG Findings * Atrial fibrillation. Left Ventricle * LVEF grossly 60-65%. * Normal LV chamber size, wall thickness and grossly normal systolic function. Not all anaya well visualized. * Indeterminate diastolic function. * Definity echo contrast was used. Right Ventricle * Mildly dilated right ventricle. * Normal right ventricular function. Left Atrium * Normal left atrial size. Right Atrium * Normal right atrial size. Interatrial Septum * Interatrial septum not well evaluated. Aortic Valve * Aortic valve not well visualized. * No aortic stenosis. * No aortic regurgitation. Mitral Valve * No mitral stenosis. * Mitral valve not well visualized. * Trace mitral regurgitation. Tricuspid Valve * Tricuspid valve not well visualized. * Trace tricuspid regurgitation. * No tricuspid stenosis. * Estimated RVSP is RV-RA gradient 31 mmHg. * * Unable to estimate RVSP due to lack of IVC visualization. Pulmonic Valve * Pulmonic valve not well visualized. * No pulmonic stenosis. * Trace pulmonic regurgitation. Aorta * Normally sized aortic root. Pericardium * The pericardium appears normal. IVC * The IVC is not well evaluated. Abdomen/Pelvis CT 07/28/18 09:30 IMPRESSION: Increased inflammatory changes in the lower abdominal and scrotal soft tissues and significantly increased fluid within the scrotum. Persistent gas within the scrotal soft tissues and bilateral inguinal soft tissues. Findings could represent cellulitis with postsurgical gas, though necrotizing fasciitis/Kingsley gangrene remains a possibility given interval worsening. Postsurgical changes of left nephrectomy with decreased fluid in the surgical bed. D/ / Puneet De La Cruz MD / Puneet De La Cruz MD Interpreting Provider: Puneet De La Cruz MD Date of admission: 07/20/18 17:39 Primary care physician: PCP NONE Consults: 07/21/18 09:15 Consult to Occupational Therapy [CONS] Routine Comment: Evaluate, develop and implement POC Reason for Consult: postoperative ambulation assistance Does patient have active BEDREST order?: No Is patient medically & hemodynamically stable?: Yes Patient assessed for mobility or mobilized this visit?: No Consult to Physical Therapy [CONS] Routine Comment: Evaluate, develop and implement POC Reason for Consult: encourage postoperative ambulation Does patient have active BEDREST order?: No Is patient medically & hemodynamically stable?: Yes Patient assessed for mobility or mobilized this visit?: No 07/23/18 07:37 Consult to Business Control Manager [CONS] Routine Reason for SW Consult: discharge planning to rehab 07/26/18 06:42 Consult to Hospitalist [CONS] Routine Consulting Provider: Lorin Joy Reason for Consult: Afib RVR Call Completed: Yes 07/28/18 08:35 Consult to Invasive Line Access Team [CONS] Routine Reason for Consult: Picc Line Insertion Line Type: PICC PICC line indications: Limited vascular access Time Notified: 08:35 Call Completed: No 07/28/18 09:43 Consult to Invasive Line Access Team [CONS] Routine Reason for Consult: Need more IV access Line Type: EPIV PICC line indications: Limited vascular access Time Notified: 08:30 Exam Initial Vital Signs Temp Pulse Resp BP Pulse Ox 97.8 F 78 18 126/69 91 07/20/18 06:44 07/20/18 06:44 07/20/18 06:44 07/20/18 06:44 07/20/18 06:44
[2018-07-31] MEDS: Loratadine 10 MG TABLET PO SCH (08:27)
[2018-07-31] MEDS: predniSONE 20 MG TABLET PO SCH (08:27)
[2018-07-31] MEDS: Diltiazem CD (24hr) 120 MG CAPSULE PO SCH (08:27)
[2018-07-31] MEDS: Furosemide 40 MG TABLET PO SCH (08:27)
[2018-07-31] MEDS: Apixaban 5 MG TABLET PO SCH ×2 (08:28→20:36)
[2018-07-31] MEDS: Tiotropium 18 MCG inhalation IH SCH (11:30)
[2018-07-31] MEDS: rOPINIRole 1 MG TABLET PO SCH (20:36)
[2018-08-01] MEDS: Levalbuterol Neb 1.25 MG/3 ML IH SCH ×4 (04:09→21:59)
[2018-08-01] MEDS: Insulin LISPRO 300 UNITS/3 ML VIAL SQ SCH ×3 (07:58→16:52)
[2018-08-01] MEDS: Apixaban 5 MG TABLET PO SCH ×2 (08:00→20:55)
[2018-08-01] MEDS: Diltiazem CD (24hr) 120 MG CAPSULE PO SCH (08:00)
[2018-08-01] MEDS: Loratadine 10 MG TABLET PO SCH (08:00)
[2018-08-01] MEDS: Furosemide 40 MG TABLET PO SCH (08:04)
[2018-08-01] MEDS: *HR* OxyCODONE Immed Rel 5 MG TABLET PO PRN ×2 (08:10→16:07)
--- NOTE | 2018-08-01 09:31 | Urology Progress Note ---
Date of Encounter: 08/01/18 Time of Encounter: 09:30 - Assessment and Plan (1) Renal malignant neoplasm Current Visit: Yes Status: Acute Assessment and plan: Awaiting placement at facility. Continue current management Qualifiers: Laterality: left Qualified Code(s): C64.2 - Malignant neoplasm of left kidney, except renal pelvis Progress Note Narrative: Patient seen this morning. Feeling okay. Some scrotal swelling. Awaiting placement status to rehabilitation Objective Initial Vital Signs Temp Pulse Resp BP Pulse Ox 97.8 F 78 18 126/69 91 07/20/18 06:44 07/20/18 06:44 07/20/18 06:44 07/20/18 06:44 07/20/18 06:44 - General physical appearance Present: well developed, well nourished - Abdomen Present: soft ([place] peel changes on skin adjacent to the left-sided hand port incision which according the patient is unchanged) - Labs 07/30/18 04:08 07/30/18 04:08 Consult Discharge Plan - Plan Additional Instructions: 1. No heavy lifting greater than 20 pounds x 4 weeks. 2. No tub baths x 2 weeks. 3. May shower. 4. He should follow up in 2 weeks for postoperative check. 5. He should return for any fevers, chills, nausea, vomiting, or significant swelling/ecchymosis. 6. Please follow up with Cardiology within 1-2 weeks of discharge. 7. Please follow up with Primary Care within 1-2 weeks of discharge. 8. Continue with dressing and packing changes twice daily. 9. Do not drive as long as you are taking narcotic pain medication. 10. Continue DuoNeb, resume inhalers, o2, and CPAP. 11. May resume Metformin and sliding scale insulin. Referrals: Temo Walker MD [Partnered Physician] - Vinicio Way MD [Partnered Physician] - 08/10/18 3:00 pm (2 weeks for wound check.) NONE,PCP [Primary Care Provider] - Prescriptions: Amoxicillin/Clavulanate [Augmentin] 875 mg PO BIDWM #20 tablet Apixaban [Eliquis] 5 mg PO BID #60 tablet Diltiazem CD (24hr) [Cardizem CD] 120 mg PO DAILY #30 cap.er.24h Docusate [Colace] 100 mg PO BID #60 capsule Furosemide [Lasix] 40 mg PO BID #60 tablet
[2018-08-01] MEDS: Tiotropium 18 MCG inhalation IH SCH (10:49)
[2018-08-01] MEDS: rOPINIRole 1 MG TABLET PO SCH (20:55)
[2018-08-02] MEDS: Levalbuterol Neb 1.25 MG/3 ML IH SCH ×4 (04:00→22:15)
[2018-08-02] MEDS: *HR* OxyCODONE Immed Rel 5 MG TABLET PO PRN ×2 (05:34→16:59)
--- NOTE | 2018-08-02 08:12 | Urology Progress Note ---
Date of Encounter: 08/02/18 Time of Encounter: 08:11 - Assessment and Plan (1) Renal malignant neoplasm Current Visit: Yes Status: Acute Assessment and plan: advised patient to be as ambulatory as possible. possible dc home tomorrow. Qualifiers: Laterality: left Qualified Code(s): C64.2 - Malignant neoplasm of left kidney, except renal pelvis Progress Note Narrative: patient seen. feeling better. still with some drainage from wound. patient ready to get out. he is contemplating just going home. Objective Initial Vital Signs Temp Pulse Resp BP Pulse Ox 97.8 F 78 18 126/69 91 07/20/18 06:44 07/20/18 06:44 07/20/18 06:44 07/20/18 06:44 07/20/18 06:44 - General physical appearance Present: well developed, well nourished - Abdomen Present: soft (unchanged skin. ) - Labs 07/30/18 04:08 07/30/18 04:08 Consult Discharge Plan - Plan Additional Instructions: 1. No heavy lifting greater than 20 pounds x 4 weeks. 2. No tub baths x 2 weeks. 3. May shower. 4. He should follow up in 2 weeks for postoperative check. 5. He should return for any fevers, chills, nausea, vomiting, or significant swelling/ecchymosis. 6. Please follow up with Cardiology within 1-2 weeks of discharge. 7. Please follow up with Primary Care within 1-2 weeks of discharge. 8. Continue with dressing and packing changes twice daily. 9. Do not drive as long as you are taking narcotic pain medication. 10. Continue DuoNeb, resume inhalers, o2, and CPAP. 11. May resume Metformin and sliding scale insulin. Referrals: Temo Walker MD [Partnered Physician] - Vinicio Way MD [Partnered Physician] - 08/10/18 3:00 pm (2 weeks for wound check.) NONE,PCP [Primary Care Provider] - Prescriptions: Amoxicillin/Clavulanate [Augmentin] 875 mg PO BIDWM #20 tablet Apixaban [Eliquis] 5 mg PO BID #60 tablet Diltiazem CD (24hr) [Cardizem CD] 120 mg PO DAILY #30 cap.er.24h Docusate [Colace] 100 mg PO BID #60 capsule Furosemide [Lasix] 40 mg PO BID #60 tablet
[2018-08-02] MEDS: Loratadine 10 MG TABLET PO SCH (09:37)
[2018-08-02] MEDS: Apixaban 5 MG TABLET PO SCH ×2 (09:37→20:17)
[2018-08-02] MEDS: Furosemide 40 MG TABLET PO SCH (09:37)
[2018-08-02] MEDS: Diltiazem CD (24hr) 120 MG CAPSULE PO SCH (09:37)
[2018-08-02] MEDS: Tiotropium 18 MCG inhalation IH SCH (11:03)
[2018-08-02] MEDS: Insulin LISPRO 300 UNITS/3 ML VIAL SQ SCH ×2 (12:23→17:01)
[2018-08-02] MEDS: rOPINIRole 1 MG TABLET PO SCH (20:17)
[2018-08-03] MEDS: Levalbuterol Neb 1.25 MG/3 ML IH SCH ×2 (04:33→10:51)
[2018-08-03] MEDS: Insulin LISPRO 300 UNITS/3 ML VIAL SQ SCH (08:12)
--- NOTE | 2018-08-03 08:51 | Urology Progress Note ---
Addendum entered and electronically signed by Vinicio Way MD 08/03/18 13:25: The patient was seen and examined with the physician's scheduling assistant. I agree with the assessment and plan. Cellulitis is improving. Will add on MiraLAX today. Anticipate discharge to [facility] facility. Original Note: Date of Encounter: 08/03/18 Time of Encounter: 08:49 - Assessment and Plan (1) Renal mass, left Current Visit: Yes Status: Acute (2) Anemia following surgery Current Visit: Yes Status: Acute (3) Atrial flutter Current Visit: Yes Status: Acute Qualifiers: Atrial flutter type: typical Qualified Code(s): I48.3 - Typical atrial flutter (4) COPD (chronic obstructive pulmonary disease) Current Visit: Yes Status: Acute Qualifiers: COPD type: unspecified COPD Qualified Code(s): J44.9 - Chronic obstructive pulmonary disease, unspecified (5) Cellulitis Current Visit: Yes Status: Acute Qualifiers: Site of cellulitis of trunk: abdominal wall Qualified Code(s): L03.311 - Cellulitis of abdominal wall (6) Diabetes Current Visit: Yes Status: Chronic Qualifiers: Diabetes mellitus type: type 2 Diabetes mellitus intermediate manager insulin use: unspecified intermediate manager insulin use status Diabetes mellitus complication status: with unspecified complications Qualified Code(s): E11.8 - Type 2 diabetes mellitus with unspecified complications (7) Renal malignant neoplasm Current Visit: Yes Status: Acute Assessment and plan: Called [facility] at 0850 and [facility]. Patient will hopefully be discharged to rehabilitation facility as previously planned. Qualifiers: Laterality: left Qualified Code(s): C64.2 - Malignant neoplasm of left kidney, except renal pelvis Progress Note Narrative: Patient status post left robotic nephrectomy on 07/20/18. Seen and examined sitting upright in chair eating breakfast in no apparent distress. Patient states he is ambulating with minimal assistance. Wishes to proceed with transfer to rehab facility. Awaiting insurance approval. Objective Initial Vital Signs Temp Pulse Resp BP Pulse Ox 97.8 F 78 18 126/69 91 07/20/18 06:44 07/20/18 06:44 07/20/18 06:44 07/20/18 06:44 07/20/18 06:44 - General physical appearance Present: well developed, no distress, no pain - Respiratory Present: normal expansion, normal respiratory effort - Abdomen Present: soft, non tender, wound (primary incisions CDI) - Integumentary Present: no rash, no abnormal pigmentation - Musculoskeletal Present: normal posture - Psychiatric Present: oriented to time, oriented to person, oriented to place, speech is normal, memory intact - Labs 07/30/18 04:08 07/30/18 04:08 Consult Discharge Plan - Plan Additional Instructions: 1. No heavy lifting greater than 20 pounds x 4 weeks. 2. No tub baths x 2 weeks. 3. May shower. 4. He should follow up in 2 weeks for postoperative check. 5. He should return for any fevers, chills, nausea, vomiting, or significant swelling/ecchymosis. 6. Please follow up with Cardiology within 1-2 weeks of discharge. 7. Please follow up with Primary Care within 1-2 weeks of discharge. 8. Continue with dressing and packing changes twice daily. 9. Do not drive as long as you are taking narcotic pain medication. 10. Continue DuoNeb, resume inhalers, o2, and CPAP. 11. May resume Metformin and sliding scale insulin. Referrals: Temo Walker MD [Partnered Physician] - Vinicio Way MD [Partnered Physician] - 08/10/18 3:00 pm (2 weeks for wound check.) NONE,PCP [Primary Care Provider] - Prescriptions: Amoxicillin/Clavulanate [Augmentin] 875 mg PO BIDWM #20 tablet Apixaban [Eliquis] 5 mg PO BID #60 tablet Diltiazem CD (24hr) [Cardizem CD] 120 mg PO DAILY #30 cap.er.24h Docusate [Colace] 100 mg PO BID #60 capsule Furosemide [Lasix] 40 mg PO BID #60 tablet
[2018-08-03 08:52] VITALS: BP 108/67
[2018-08-03] MEDS: Diltiazem CD (24hr) 120 MG CAPSULE PO SCH (09:58)
[2018-08-03] MEDS: Apixaban 5 MG TABLET PO SCH (09:58)
[2018-08-03] MEDS: Furosemide 40 MG TABLET PO SCH (09:58)
[2018-08-03] MEDS: Loratadine 10 MG TABLET PO SCH (09:58)
[2018-08-03] MEDS: Tiotropium 18 MCG inhalation IH SCH (10:51)
== END 2018-08-03 15:13 | DRG 442 ==
LOC: SAMDAY 06:17 → SUATTDRO 17:39 → 3ANU 17:39
PROVIDERS: ADMIT Urology; ATTEND Internal Medicine